=== PATIENT | female | born 1945 | race Caucasian/White ===

== ENCOUNTER → 2018-06-12 | Outpatient (CLI) | payer MEDICARE, OTHER ==
[~2018-06-12] MED LIST: ALBU18HF2 INH; ASPI-983 PO; FLUT1BLS3 INH; FURO20TA4 PO; LISI10TA2 PO; LORA-405 SL; METO50TA15 PO; ONDA4TAB10 PO; OXYC1TAB12 PO; OXYC20OR15 PO; OXYC30TA77 PO; POTA10TA10 PO; PRD20T PO; RANI150T11 PO
== END ==
LOC: RAD FS 12:03
PROVIDERS: ATTEND Family Medicine
DX: Z53.9 Procedure and treatment not carried out, unspecified reason (principal)

== ENCOUNTER 2018-06-16 03:33 | Inpatient (IN) | payer MEDICARE, OTHER ==
[2018-06-16] VITALS (17 sets, daily range): BP systolic 112–138; BP diastolic 11–111
[~2018-06-16] VITALS: Ht 160 cm; Wt 60.3 kg
[2018-06-16] MEDS ORDERED: DEXAMETHASONE 4 MG/ML SDV (DECADRON) ONE (03:37)
[2018-06-16] MEDS ORDERED: RT-ALBUTEROL/IPRATROPIUM 3 ML (DUONEB) VIAL ONE (03:37)
[2018-06-16] MEDS ORDERED: methylPREDNISolone 125 MG (Solu-MEDROL) VIAL IV STA (03:41)
[2018-06-16] MEDS ORDERED: methylPREDNISolone 125 MG (Solu-MEDROL) VIAL ONE (03:41)
[2018-06-16] MEDS ORDERED: RT-ALBUTEROL/IPRATROPIUM 3 ML (DUONEB) VIAL INH ONE (03:45)
[2018-06-16] MEDS ORDERED: DEXAMETHASONE 4 MG/ML SDV (DECADRON) IH ONE (03:45)
[2018-06-16 03:49] LABS: BASOPHILS # (AUTO) 0.1 10^3/uL (0.0-0.1); BASOPHILS % (AUTO) 1 % (0-10); EOSINOPHILS # (AUTO) 3.5 10^3/uL (0.0-0.3); EOSINOPHILS % (AUTO) 35 % (0-10); HEMATOCRIT 41 % (35-52); HEMOGLOBIN 13.8 G/DL (11.5-16.0); LYMPHOCYTES # (AUTO) 2.4 X 10^3 (1.0-4.0); LYMPHOCYTES % (AUTO) 23 % (12-44); MEAN CORPUSCULAR HEMOGLOBIN 31 PG (25-34); MEAN CORPUSCULAR HGB CONC 33 G/DL (32-36); MEAN CORPUSCULAR VOLUME 92 FL (80-99); MEAN PLATELET VOLUME 9.1 FL (7.4-10.4); MONOCYTES # (AUTO) 0.9 X 10^3 (0.0-1.0); MONOCYTES % (AUTO) 9 % (0-12); NEUTROPHILS # (AUTO) 3.3 X 10^3 (1.8-7.8); NEUTROPHILS % (AUTO) 32 % (42-75); PLATELET COUNT 340 10^3/uL (130-400); RED CELL DISTRIBUTION WIDTH 13.3 % (10.0-14.5); WHITE BLOOD COUNT 10.1 10^3/uL (4.3-11.0)
--- NOTE | 2018-06-16 03:51 | ED Respiratory ---
General Stated Complaint: SOB Source: patient (VERY LIMITED AND DIFFICULT HISTORIANB), family (DAUGHTER IS FAIR HISTORIAN) Exam Limitations: other (BOTH PT AND DAUGHTER NEED FREQUENT RE-DIRECTING TO EMERGENT PROBLEM OF PT'S BREATHING. THEY BOTH ARE FIXATED ON ALL OF PT'S ONGOING CHRONIC PROBLEMS OF BACK AND NECK PAIN AND GI ISSUES) History of Present Illness Date Seen by Provider: Jun 16, 2018 Time Seen by Provider: 03:35 Initial Comments PT ARRIVES VIA POV FROM HOME IN [place] PT WITH HISTORY OF COPD, O2 DEPENDENT AT 2L/NC C/O INCREASED SHORTNESS OF BREATH TONIGHT--IN LAST 24 HOURS LAST USED ALBUTEROL INHALER JUST PRIOR TO LEAVING HOME NO FEVER, BUT HAS HAD SWEATS PT HAS ONGOING SWELLING IN LEGS. AND WAS HAVING SOME WEIGHT GAIN OVER THE LAST SEVERAL MONTHS, BUT THEN HAS BEEN LOSING WEIGHT OVER THE LAST FEW MONTHS OR MORE DUE TO ONGOING ISSUES WITH NAUSEA/VOMITING AND ABDOMINAL PAIN AND "CAN'T EAT" INCREASE IN CHRONIC COUGH--PRODUCTIVE OF COLORED SPUTUM NO CHEST PAIN HAS HISTORY OF PNEUMONIA AND WAS TREATED WITH ORAL ANTIBIOTICS A COUPLE OF MONTHS AGO FOR PNEUMONIA. PT SAW DR. GARCIA ON Tuesday06/14/18 FOR ROUTINE EXAM FOR CHRONIC ISSUES PT TAKES PERCOCET FOR CHRONIC BACK, NECK AND KNEE PAIN --WAS TAKING AT LEAST 5 A DAY, SO SWITCHED HER TO OXYCONTIN--HAS ONLY TAKEN 2 PILLS TOTAL PCP: FT. LIBIA CURTIS. Allergies and Home Medications Allergies Coded Allergies: morphine (Verified Allergy, Unknown, 06/16/18) Patient Home Medication List Home Medication List Reviewed: Yes Review of Systems Review of Systems Constitutional: see HPI, diaphoresis; No fever; weight gain, weight loss EENTM: no symptoms reported Respiratory: see HPI, cough, dyspnea on exertion, phlegm, short of breath, wheezing Cardiovascular: No chest pain; edema; No palpitations, No syncope Gastrointestinal: see HPI, abdominal pain (CHRONIC), loss of appetite (CHRONIC) , nausea (CHRONIC ), vomiting (CHRONIC), other (ALL OF THE ABOVE GI SYMPTOMS HAVE BEEN ONGOING FOR A FEW MONTHS) Genitourinary: no symptoms reported Musculoskeletal: see HPI (ALL CHRONIC PAIN COMPLAINTS) Skin: no symptoms reported Psychiatric/Neurological: Headache; Denies Numbness, Denies Paresthesia Hematologic/Lymphatic: No Symptoms Reported Immunological/Allergic: no symptoms reported Past Gcwcjhv-Hrxefj-Crczao Hx Patient Social History Alcohol Use: Denies Use Recreational Drug Use: No Smoking Status: Current Everyday Smoker (1 04/26 PPD) Recent Foreign Travel: No Contact w/Someone Who Travel: No Past Medical History Surgeries: Yes (HYST/BSO; BACK SURGERY; NECK SURGERY; LEFT KNEE SCOPE; CATARACTS) Eye Surgery, Hysterectomy, Oophorectomy, Orthopedic Respiratory: Yes Pneumonia, Chronic Bronchitis, COPD Cardiac: Yes Hypertension 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 oz. kg; BMI Method: General Appearance: thin, other (VERY ANXIOUS, MODERATELY DYSPNEIC --TALKS IN 2 -3 ) HEENT: PERRL/EOMI Neck: non-tender, full range of motion, supple, normal inspection Respiratory: other (MINIMAL AREATION IN ALL LUNG [place], OCCASIONAL PRODUCTIVE COUGH) Cardiovascular: regular rate, rhythm, no murmur Gastrointestinal: soft, tenderness (EPIGASTRIC) Extremities: normal range of motion, non-tender, no calf tenderness, normal capillary refill, pedal edema (1+ BILATERALLY) Neurologic/Psychiatric: no motor/sensory deficits, alert, oriented x 3, other ( ANXIOUS) Skin: normal color, warm/dry Focused Exam Lactate Level 06/16/18 03:47: Lactic Acid Level 1.28 Lactic Acid Level Laboratory Tests Test 06/16/18 03:47 Lactic Acid Level 1.28 MMOL/L (0.50-2.00) Progress/Results/Core Measures Suspected Sepsis SIRS Temperature: Pulse: Respiratory Rate: Laboratory Tests 06/16/18 03:40: White Blood Count 10.1 Blood Pressure / Mean: 06/16/18 03:47: Lactic Acid Level 1.28 Laboratory Tests 06/16/18 03:40: Creatinine 1.01, INR Comment 1.0, Platelet Count 340, Total Bilirubin 0.5 Results/Orders Lab Results Laboratory Tests Test 06/16/18 03:40 06/16/18 03:47 06/16/18 03:55 Range/Units White Blood Count 10.1 4.3-11.0 10^3/uL Red Blood Count 4.47 4.35-5.85 10^6/uL Hemoglobin 13.8 11.5-16.0 G/DL Hematocrit 41 35-52 % Mean Corpuscular Volume 92 80-99 FL Mean Corpuscular Hemoglobin 31 25-34 PG Mean Corpuscular Hemoglobin Concent 33 32-36 G/DL Red Cell Distribution Width 13.3 10.0-14.5 % Platelet Count 340 130-400 10^3/uL Mean Platelet Volume 9.1 7.4-10.4 FL Neutrophils (%) (Auto) 32 L 42-75 % Lymphocytes (%) (Auto) 23 12-44 % Monocytes (%) (Auto) 9 0-12 % Eosinophils (%) (Auto) 35 H 0-10 % Basophils (%) (Auto) 1 0-10 % Neutrophils # (Auto) 3.3 1.8-7.8 X 10^3 Lymphocytes # (Auto) 2.4 1.0-4.0 X 10^3 Monocytes # (Auto) 0.9 0.0-1.0 X 10^3 Eosinophils # (Auto) 3.5 H 0.0-0.3 10^3/uL Basophils # (Auto) 0.1 0.0-0.1 10^3/uL Neutrophils % (Manual) 38 % Lymphocytes % (Manual) 23 % Monocytes % (Manual) 9 % Eosinophils % (Manual) 30 % Prothrombin Time 13.0 12.2-14.7 SEC INR Comment 1.0 0.8-1.4 Activated Partial Thromboplast Time 43 H 24-35 SEC Sodium Level 141 135-145 MMOL/L Potassium Level 4.2 3.6-5.0 MMOL/L Chloride Level 104 98-107 MMOL/L Carbon Dioxide Level 24 21-32 MMOL/L Anion Gap 13 5-14 MMOL/L Blood Urea Nitrogen 10 7-18 MG/DL Creatinine 1.01 0.60-1.30 MG/DL Estimat Glomerular Filtration Rate 54 BUN/Creatinine Ratio 10 Glucose Level 107 H 70-105 MG/DL Calcium Level 10.1 8.5-10.1 MG/DL Corrected Calcium 10.1 8.5-10.1 MG/DL Magnesium Level 2.1 1.8-2.4 MG/DL Total Bilirubin 0.5 0.1-1.0 MG/DL Aspartate Amino Transf (AST/SGOT) 31 5-34 U/L Alanine Aminotransferase (ALT/SGPT) 26 0-55 U/L Alkaline Phosphatase 84 40-136 U/L Total Creatine Kinase 103 29-168 U/L Creatine Kinase MB 2.0 <6.6 NG/ML Troponin I 1.438 *H <0.028 NG/ML B-Type Natriuretic Peptide 71.9 <100.0 PG/ML Total Protein 6.8 6.4-8.2 GM/DL Albumin 4.0 3.2-4.5 GM/DL Lactic Acid Level 1.28 0.50-2.00 MMOL/L Blood Gas Puncture Site RIGHT RADIAL Blood Gas Patient Temperature 96.6 Arterial Blood pH 7.44 H 7.37-7.43 Arterial Blood Partial Pressure CO2 37 35-45 MMHG Arterial Blood Partial Pressure O2 146 H 79-93 MMHG Arterial Blood HCO3 25 23-27 MMOL/L Arterial Blood Total CO2 26.6 21.0-31.0 MMOL/L Arterial Blood Oxygen Saturation 100 94-100 % Arterial Blood Base Excess 1.4 -2.5-2.5 MMOL/L Frank Test POSITIVE Blood Gas Ventilator Setting NO Blood Gas Inspired Oxygen 10 Micro Results Microbiology 06/16/18 Influenza Types A,B Antigen (BRANDEE) - Final, Complete My Orders Orders - SEGUN MASON DO Dexamethasone Injection (Decadron Inject (06/16/18 03:37) Albuterol/Ipra Inhalation Soln (Duoneb I (06/16/18 03:37) Saline Lock/Iv-Start (06/16/18 03:41) Ekg Tracing (06/16/18 03:41) O2 (06/16/18 03:41) Monitor-Rhythm Ecg Trace Only (06/16/18 03:41) BNP (06/16/18 03:41) Cbc With Automated Diff (06/16/18 03:41) Comprehensive Metabolic Panel (06/16/18 03:41) Creatine Kinase (06/16/18 03:41) Creatine Kinase Mb (06/16/18 03:41) Lactic Acid Analyzer (06/16/18 03:41) Magnesium (06/16/18 03:41) Protime With Inr (06/16/18 03:41) Partial Thromboplastin Time (06/16/18 03:41) Troponin I (06/16/18 03:41) Blood Culture (06/16/18 03:41) Influenza A And B Antigens (06/16/18 03:41) Chest 1 View, Ap/Pa Only (06/16/18 03:41) Methylprednisolone Sod Succ (Solu-Medrol (06/16/18 03:41) Albuterol/Ipra Inhalation Soln (Duoneb I (06/16/18 03:45) Dexamethasone Injection (Decadron Inject (06/16/18 03:45) Rt Request For Service (06/16/18 03:41) Svn Small Volume Nebulizer (06/16/18 03:41) Methylprednisolone Sod Succ (Solu-Medrol (06/16/18 03:41) Arterial Blood Gas (06/16/18 03:48) Manual Differential (06/16/18 03:40) Arterial Blood Draw (06/16/18 ) Albuterol Pre-Mix Nebs (Rt) (Proventil (06/16/18 04:08) Svn Small Volume Nebulizer (06/16/18 04:08) Aspirin Chewable Tablet (Baby Aspirin Ch (06/16/18 04:30) Acetaminophen Tablet (Tylenol Tablet) (06/16/18 04:30) Hydralazine Injection (Apresoline Inject (06/16/18 04:45) Ct Head Wo (06/16/18 04:40) Ct Angio Chst/Abd/Pelv W (06/16/18 04:40) Fentanyl Injection (Sublimaze Injection (06/16/18 04:59) Fentanyl Injection (Sublimaze Injection (06/16/18 04:56) Iohexol Injection (Omnipaque 350 Mg/Ml 1 (06/16/18 06:00) Ns (Ivpb) (Sodium Chloride 0.9% Ivpb Bag (06/16/18 06:00) Ticagrelor Tablet (Brilinta Tablet) (06/16/18 06:30) Heparin Drip 14988 Unit/500ml (Heparin (06/16/18 06:23) Heparin (Bolus Per Protocol) (Heparin (B (06/16/18 06:23) Medications Given in ED Current Medications Medications Dose Ordered Sig/Shawna Route Start Time Stop Time Status Last Admin Dose Admin Acetaminophen 1,000 mg ONCE ONCE PO 06/16/18 04:30 06/16/18 04:31 DC 06/16/18 04:36 1,000 MG Albuterol/ Ipratropium 3 ml ONCE ONCE INH 06/16/18 03:45 06/16/18 03:46 DC 06/16/18 03:45 3 ML Aspirin 324 mg ONCE ONCE PO 06/16/18 04:30 06/16/18 04:31 DC 06/16/18 04:36 324 MG Dexamethasone Sodium Phosphate 20 mg ONCE ONCE IH 06/16/18 03:45 06/16/18 03:46 DC 06/16/18 03:45 20 MG Fentanyl Citrate 100 mcg STK-MED ONCE .ROUTE 06/16/18 04:56 06/16/18 05:01 DC 06/16/18 05:07 25 MCG Heparin Sodium (Porcine) HEPARIN BOLUS ACS PROTOC... 0623 ONCE IV 06/16/18 06:23 06/16/18 06:27 DC 06/16/18 06:52 5,000 UNIT Heparin Sodium/ Dextrose 500 ml @ 0 mls/hr Q0M ONCE IV 06/16/18 06:23 06/16/18 06:27 DC 06/16/18 06:54 16 MLS/HR Hydralazine HCl 10 mg ONCE ONCE IV 06/16/18 04:45 06/16/18 06:22 DC 06/16/18 04:45 10 MG Iohexol 150 ml ONCE ONCE IV 06/16/18 06:00 06/16/18 06:23 DC 06/16/18 05:52 150 ML Sodium Chloride 80 ml ONCE ONCE IV 06/16/18 06:00 06/16/18 06:23 DC 06/16/18 05:52 80 ML Ticagrelor 180 mg ONCE ONCE PO 06/16/18 06:30 06/16/18 06:31 DC 06/16/18 06:51 180 MG Vital Signs/I&O 06/16/18 06/16/18 06/16/18 06/16/18 03:35 03:35 03:45 05:34 Temp 96.6 Pulse 113 Resp 26 B/P (MAP) 154/115 (128) Pulse Ox 96 96 99 98 O2 Delivery Nasal Cannula Nasal Cannula Nasal Cannula Nasal Cannula O2 Flow Rate 2.00 2.00 3.00 3.00 Capillary Refill : Progress Note : Progress Note GIVEN HOUR LONG NEB TREATMENT, AND SOLU-MEDROL--INCREASED AERATION, RESPIRATIONS MUCH LESS LABORED, PT APPEARS CALMER WITH VARYING DEGREES OF ANXIETY THROUGHOUT ER STAY PT CONTINUES TO C/O HEADACHE--BP IS ELEVATED--HYDRALAZINE GIVEN, TYLENOL GIVEN-- BP DOWN, HEADACHE IMPROVING PT CONTINUED TO C/O CHRONIC BACK PAIN--FENTANYL GIVEN--BACK PAIN EASED PT BEGAN TO SHOW SOME SIGNS OF RESPIRATORY FATIGUE, AND CPAP ORDERED, BUT THEN PT ADAMANTLY REFUSED TO WEAR IT WHEN RT TRIED TO PLACE THE MASK ON HER, AND PT HAD INCREASING ANXIETY AGAIN O2 SATS REMAINED 100% ON 2L/NC THROUGHOUT PT EVENTUALLY WAS ABLE TO REST FOR REMAINDER OF ER STAY PT GIVEN ASPIRIN 324 MG, BRILINTA, AND HEPARIN PER DR. FATIMA'S ADVICE. ECG Initial ECG Impression Date: Jun 16, 2018 Initial ECG Impression Time: 03:39 Initial ECG Rate: 101 Initial ECG Rhythm: S.Tach Initial ECG Comparisson: No Previous ECG Available Diagnostic Imaging Comments CXR--MILD VASCULAR CONGESTION, PENDING RADIOLOGIST REVIEW CT HEAD--NO ACUTE PROCESS, PER [facility] VIA FAX @ 0600 CT CHEST/ABDOMEN/PELVIS ANGIOGRAM--NO P.E. EMPHYSEMATOUS CHANGES OF LUNGS, DISTAL THORACIC AORTIC ANEURYSM 4.3. 4.1 WITH INTRALUMINAL THROMBUS. NO DISSECTION. 2.5 X 2.5 X 2 CM FOCAL ANEURYSMAL OUTPOUCHING OF INFRARENAL ABDOMINAL AORTA, WITH MINIMAL THROMBUS IN THE LUMEN, NO DISSECTION. CHRONIC LEFT UPJ RENAL OBSTRUCTION PER [facility] VIA FAX @ 0617 Reviewed: Reviewed by Mo Departure Communication (Admissions) 5789--SPOKE WITH DR. FATIMA, ADVISES BRILINTA, HEPARIN BOLUS 5000 UNITS, WITH DRIP AT 800 MG, ECHOCARDIOGRAM IN AM. ADVISES ADMIT TO HOSPITALIST. 7309--SPOKE WITH DR. YUSUF, HOSPITALIST, ACCEPTS PT FOR ADMIT WILL OBTAIN CT STUDIES PRIOR TO INITIATING HEPARIN AND BRILINTA 0617--REVIEWED CT RESULTS WITH DR. FATIMA, AND HE ADVISES TO GIVE BRILINTA AND HEPARIN ADVISED NO BEDS AVAILABLE UPSTAIRS UNTIL AFTER 0700, SO WILL HOLD IN ER UNTIL BED IS AVAILABLE. Impression Primary Impression: NSTEMI (non-ST elevated myocardial infarction) Additional Impressions: COPD exacerbation HTN (hypertension) Chronic back pain Anxiety Heavy tobacco smoker Disposition: ADMITTED INPATIENT Condition: Improved Admissions Decision to Admit Reason: Admit from ER (General) Decision to Admit/Date: Jun 16, 2018 Time/Decision to Admit Time: 04:40 Departure-Patient Inst. Referrals: ALVA GARCIA MD (PCP) Primary Care Physician ADRIAN WALKER APRN (Family) Primary Care Physician SEGUN MASON DO Jun 16, 2018 03:51
[2018-06-16 04:05] LABS: ABG BASE EXCESS 1.4 MMOL/L (-2.5-2.5); ABG OXYGEN SATURATION 100 % (94-100); ABG PCO2 37 MMHG (35-45); ABG PH 7.44 (7.37-7.43); ABG PO2 146 MMHG (79-93); ABG TCO2 26.6 MMOL/L (21.0-31.0)
[2018-06-16 04:06] LABS: ALLENS TEST POSITIVE
[2018-06-16 04:07] LABS: INSPIRED O2 10; PATIENT TEMP 96.6; VENTILATOR NO
[2018-06-16] MEDS ORDERED: RT-ALBUTEROL SULF 2.5 MG/3 ML PRE-MIX VIAL INH STA (04:08)
[2018-06-16 04:13] LABS: BILIRUBIN,TOTAL 0.5 MG/DL (0.1-1.0); CALCIUM 10.1 MG/DL (8.5-10.1); CREATININE SERUM 1.01 MG/DL (0.60-1.30); MAGNESIUM 2.1 MG/DL (1.8-2.4); POTASSIUM 4.2 MMOL/L (3.6-5.0); TOTAL PROTEIN 6.8 GM/DL (6.4-8.2)
[2018-06-16] MEDS ORDERED: ASPIRIN 81 MG CHEW (CHILDREN'S ASA) PO ONE (04:30)
[2018-06-16] MEDS ORDERED: ACETAMINOPHEN 500 MG TAB (TYLENOL) PO ONE (04:30)
[2018-06-16] MEDS ORDERED: hydrALAZINE (APESOLINE) 20 MG/ML VIAL IV ONE (04:45)
[2018-06-16] MEDS ORDERED: fentaNYL INJECTION 100 MCG/2 ML AMP ONE (04:56)
[2018-06-16] MEDS ORDERED: fentaNYL INJECTION 100 MCG/2 ML AMP IVP STA (04:59)
[2018-06-16 05:15] LABS: EOSINOPHILS % (MANUAL) 30 %; LYMPHOCYTES % (MANUAL) 23 %; MONOCYTES % (MANUAL) 9 %; NEUTROPHILS % (MANUAL) 38 %
[2018-06-16] MEDS ORDERED: NS 100 ML (IVPB) BAG IV ONE (06:00)
[2018-06-16] MEDS ORDERED: IOHEXOL 350 MG/ML 150 ML (OMNIPAQUE 350) VIAL IV ONE (06:00)
--- NOTE | 2018-06-16 06:06 | Diagnostic Imaging Report ---
PROCEDURE: CT head without contrast. TECHNIQUE: Multiple contiguous axial images were obtained through the brain without the use of intravenous contrast. INDICATION: Altered mental status The ventricles are normal in size, shape and position. There are no masses or hemorrhages. There are no extra-axial fluid collections. Basilar artery appears more dense than the carotids which can be seen with thrombosis. IMPRESSION: Hyperdense basilar artery could be due to thrombosis. Clinical correlation recommended. Dictated by: Dictated on workstation # [id number]
[2018-06-16] MEDS ORDERED: HEParin DRIP 25000 UNIT/500ML 500 ML IV ONE (06:23)
[2018-06-16] MEDS ORDERED: HEParin 1000 UNIT/ML (10ML VIAL) FOR BOLUS IV ONE (06:23)
[2018-06-16] MEDS ORDERED: TICAGRELOR 90 MG TABLET (BRILINTA) PO ONE (06:30)
--- NOTE | 2018-06-16 06:39 | Diagnostic Imaging Report ---
INDICATION: Shortness of breath Portable chest 4:20 AM Heart size and pulmonary vascularity are normal. Lungs are clear. There are no effusions or pneumothoraces. IMPRESSION: Negative chest Dictated by: Dictated on workstation # [id number]
--- NOTE | 2018-06-16 07:38 | NUR ---
PINA ZIMMER admitted to room CU8-1, with an admitting diagnosis of NSTEMI, HTN, COPD EXAC, on 06/16/18 from ER via ST[facility], accompanied by STAFF.PINA ZIMMER introduced to surroundings, call light, bed controls, phone, TV, temperature control, lights, meal times, smoking policy, visitor policy, side rail policy, bathrooms and showers. Patient Rights given to patient in the handbook. PINA ZIMMER verbalizes understanding that [facility] is not responsible for the loss or damage to any personal effects or valuables that are kept in the patients posession during their hospitalization. The following Patient Care Plans were discussed with the PT: Discharge Planning, PAIN,FLUID VOLUME DEFICIT, and ANXIETY. PINA ZIMMER verbalizes understanding of Interdisciplinary Patient Education. Patient and family were informed about the Rapid Response Team and its purpose.
--- NOTE | 2018-06-16 07:44 | Diagnostic Imaging Report ---
PROCEDURE: CT angiography of the chest with contrast and CT abdomen and pelvis with contrast. TECHNIQUE: Multiple contiguous axial images were obtained through the chest, abdomen and pelvis after administration of intravenous contrast. Reconstructed MIP CT angiography acquisitions of the aorta were then performed. INDICATION: Chest and abdominal pain There are emphysematous changes in the lungs. There is a calcified granuloma in the superior segment of the left lower lobe. There are no infiltrates, effusions or pneumothoraces. Ascending aorta is mildly dilated measuring 4.4 cm. There is calcific atherosclerosis of the descending thoracic aorta. There is an intramural hematoma in the lateral wall of the descending thoracic aorta at the level of the hiatus and extends over a distance of 4.5 cm. Appears to terminate at the origin of the celiac artery. Celiac and superior mesenteric artery are both widely patent. Renal arteries are both widely patent. The inferior mesenteric artery appears to reconstitute from SMA collaterals. There is no aneurysm present in the abdominal aorta. Liver appears normal. Gallbladder is present. Pancreas is normal. Spleen is not enlarged. Adrenals are normal. Right kidney is normal. There is severe hydronephrosis of the left kidney. Left ureter is not dilated. This is likely due to a chronic UPJ stenosis. Urinary bladder is unremarkable. Uterus is surgically absent. Small bowel is not dilated. Colon is unremarkable. There is no intraperitoneal free air or free fluid. IMPRESSION: Severe emphysematous change in the lungs. There is an intramural hematoma of the aorta at the thoracoabdominal junction extending for a distance of 4.5 cm. The hematoma terminates at the origin of the celiac artery. There is grade 4 hydronephrosis of the left kidney. Dictated by: Dictated on workstation # [id number]
[2018-06-16] MEDS ORDERED: NITROGLYCERIN 0.4 MG SL TABS BTL 25'S SL PRN (08:00)
[2018-06-16] MEDS ORDERED: CATHETER FLUSH 10 ML SYR IV PRN (08:00)
[2018-06-16] MEDS: HEParin DRIP 25000 UNIT/500ML 500 ML IV SCH (08:25)
[2018-06-16] MEDS: ASPIRIN E.C. 81 MG (ECOTRIN) TAB PO SCH (08:30)
[2018-06-16] MEDS: LORazepam INJ 2 MG/ML (ATIVAN) VIAL IV PRN ×3 (08:30→16:39)
[2018-06-16] MEDS ORDERED: LISI10TA2 PO (08:51)
[2018-06-16] MEDS ORDERED: PRD20T PO (08:51)
[2018-06-16] MEDS ORDERED: ALBU18HF2 INH (08:51)
[2018-06-16] MEDS ORDERED: RANI150T11 PO (08:51)
[2018-06-16] MEDS ORDERED: POTA10TA10 PO (08:51)
[2018-06-16] MEDS ORDERED: ONDA4TAB10 PO (08:51)
[2018-06-16] MEDS ORDERED: OXYC30TA77 PO (08:51)
[2018-06-16] MEDS ORDERED: FURO20TA4 PO (08:51)
[2018-06-16] MEDS ORDERED: FLUT1BLS3 INH (08:51)
[2018-06-16] MEDS ORDERED: METO50TA15 PO ×2 (08:51→08:55)
[2018-06-16] MEDS ORDERED: ASPI-983 PO (08:51)
--- NOTE | 2018-06-16 08:57 | Consultation-Cardiology ---
HPI-Cardiology Cardiology Consultation: Date of Consultation 06/16/18 Date of Admission Attending Physician Rakel Monroy DO Admitting Physician Monty Jaimes MD Consulting Physician Brian ROBERTSON MD HPI: Time Seen by a Provider: 09:00 Chief Complaint: Shortness of breath This is a 73-year-old lady with history of oxygen dependent COPD, active smoking. Presents with increased shortness of breath since last night. She also has worsening chronic cough. She denies any significant chest pain. She is also been complaining of poor appetite and abdominal discomfort. Review of Systems-Cardiology Review of Systems Constitutional: As described under HPI; No As described under HPI, No no symptoms reported, No chills, No fever, No lightheadedness Eyes: No As described under HPI, No no symptoms reported, No blindness, No blurred vision, No contact lenses, No drainage, No decreased acuity, No foreign body sensation, No pain, No vision change Ears/Nose/Throat: No As described under HPI, No no symptoms reported, No chronic hearing loss, No ear discharge, No ear pain, No nasal drainage, No ulcerations Respiratory: No no symptoms reported; As described under HPI; No As described under HPI, No cough, No orthopnea; shortness of breath; No SOB with excertion Cardiovascular: No no symptoms reported; As described under HPI; No As described under HPI, No chest pain, No edema, No irregular heart rate, No lightheadedness, No palpitations Gastrointestinal: No no symptoms reported, No As described under HPI, No abdomen distended; abdominal pain; No blood streaked bowels, No constipation, No diarrhea, No nausea, No vomiting; nausea/vomiting/diarrhea; No stool coloration changes Genitourinary: No As described under HPI, No burning, No dysuria, No discharge , No frequency, No flank pain, No hematuria, No urgency : Yes : No Musculoskeletal: No no symptoms reported, No As describe under HPI, No back pain, No gout, No joint pain, No joint swelling, No muscle pain, No muscle stiffness, No neck pain, No other Skin: No no symptoms reported, No As described under HPI, No change in color, No change in hair/nails, No dryness, No lesions, No lumps, No rash, No other, No skin related problems, No ulcerations, No rash on exposed areas, No ulcerations on exposed areas Psychiatric/Neurological: No anxiety, No depression, No seizure, No focal weakness, No syncope Hematologic: No bleeding abnormalities PDG-Ehuzib-Tposih Hx Patient Social History Alcohol Use: Denies Use Recreational Drug Use: No Smoking Status: Current Everyday Smoker (1 1/2 PPD) Type Used: Cigarettes 2nd Hand Smoke Exposure: Yes Recent Foreign Travel: No Recent Infectious Disease Expo: No Hospitalization with Isolation: Denies Past Medical History PMH As described under Assessment. Allergies and Home Medications Allergies Coded Allergies: morphine (Verified Allergy, Unknown, 06/16/18) Home Medications Albuterol Sulfate 18 Gm Hfa.aer.ad, 2 PUFF INH Q4H PRN for SHORTNESS OF BREATH, (Reported) Aspirin 81 Mg Tablet.dr, 81 MG PO DAILY PRN for PAIN-MILD, (Reported) Lorazepam 1 Mg Tablet, 1 MG SL Q2H PRN for ANXIETY Prescribed by: AMANDA VAZQUEZ on 06/17/18 1145 Metoprolol Tartrate 50 Mg Tablet, 75 MG PO DAILY, (Reported) TAKES 1 & 1/2 (50MG) TABLET Metoprolol Tartrate 50 Mg Tablet, 25 MG PO HS PRN for HIGH BLOOD PRESSURE, ( Reported) TAKES 1/2 (50MG) TABLET Ondansetron HCl 4 Mg Tablet, 4 MG PO TID PRN for NAUSEA/VOMITING-1ST LINE, ( Reported) Oxycodone HCl 30 Mg Tab.er.12h, 30 MG PO BID, (Reported) Oxycodone HCl 20 Mg/1 Ml Oral.conc, 10 MG PO Q15M PRN for PAIN-MILD TO MODERATE Prescribed by: AMANDA VAZQUEZ on 06/17/18 1145 Oxycodone HCl/Acetaminophen 1 Each Tablet, 1 TAB PO Q8H PRN for PAIN-MODERATE Prescribed by: AMANDA VAZQUEZ on 06/17/18 1145 Patient Home Medication List Home Medication List Reviewed: Yes Physical Exam-Cardiology Physical Exam Vital Signs/I&O 06/17/18 06/17/18 06/17/18 06/17/18 06:36 07:00 07:02 07:55 Temp 98.4 Pulse 122 120 Resp 31 B/P (MAP) 112/71 (85) Pulse Ox 96 94 O2 Delivery Nasal Cannula Nasal Cannula O2 Flow Rate 3.00 3.00 206/17/18 06/17/18 06/17/18 08:02 08:14 09:00 10:00 Pulse 118 101 100 Resp 22 16 14 B/P (MAP) 111/73 (86) 116/97 (103) 128/90 (103) Pulse Ox 95 98 98 O2 Delivery Nasal Cannula Nasal Cannula Nasal Cannula Nasal Cannula O2 Flow Rate 3.00 3.00 3.00 3.00 06/17/18 06/17/18 06/17/18 06/17/18 11:00 11:21 11:26 12:00 Temp 99.0 Pulse 92 98 Resp 19 19 B/P (MAP) 135/86 (102) 129/87 (101) Pulse Ox 98 95 O2 Delivery Nasal Cannula Nasal Cannula Nasal Cannula O2 Flow Rate 3.00 3.00 3.00 06/17/18 06/17/18 06/17/18 12:59 13:00 14:20 Pulse 105 107 Resp 38 B/P (MAP) 112/85 (94) Pulse Ox 97 O2 Delivery Nasal Cannula O2 Flow Rate 3.00 06/17/18 00:00 Intake Total 352 ml Output Total 450 ml Balance -98 ml Capillary Refill : Less Than 3 Seconds Constitutional: appears stated age; No apparent distress; well-developed, well- nourished HEENT: PERRL; No discharge; hearing is well preserved, oral hygience is good; No ulceration, No xanthelasmas are seen Neck: No carotid bruit; carotid pulses are 2 + bilaterally Respiratory: chest is bilaterally symmetric, lungs clear to auscultation, other (coarse breathing) Cardiovascular: regular rate-rhythm; No irregularly irregular, No extra beats, No parasternal heave is noted, No JVD, No edema, No bradycardia, No tachycardia , No point of maximal impulse, No cardiac thrills are palpable; S1 and S2; No gallop/S3, No gallop/S4, No diastolic murmur, No systolic murmur, No friction rub, No click, No other Gastrointestinal: No tender, No soft, No round, No distended, No pulsatile mass , No organomegaly, No guarding, No rebound, No tenderness, No hernia, No mass, No audible bowel sounds, No abnormal bowel sounds, No abdominal bruits, No spleenomegaly, No other Rectal: deferred Extremities: No normal range of motion, No non-tender, No normal inspection, No pedal edema, No calf tenderness, No normal capillary refill, No pelvis stable , No calf tenderness, No inflammation, No pedal edema, No slow capillary refill , No swelling, No other, No abrasion, No clubbing, No cyanosis, No ecchymosis, No laceration, No no lower extremity edema bilateral, No significant edema, No tenderness, No wound Neurologic/Psychiatric: alert, oriented x 3, power is 5/5 both on sides Skin: No rash, No ulcerations Data Review Labs Laboratory Tests 06/17/18 03:06: White Blood Count 11.4H, Red Blood Count 3.69L, Hemoglobin 11.6, Hematocrit 34L , Mean Corpuscular Volume 93, Mean Corpuscular Hemoglobin 31, Mean Corpuscular Hemoglobin Concent 34, Red Cell Distribution Width 13.6, Platelet Count 324, Mean Platelet Volume 9.2, Neutrophils (%) (Auto) 68, Lymphocytes (%) (Auto) 18, Monocytes (%) (Auto) 13H, Eosinophils (%) (Auto) 2, Basophils (%) (Auto) 0, Neutrophils # (Auto) 7.7, Lymphocytes # (Auto) 2.0, Monocytes # (Auto) 1.4H, Eosinophils # (Auto) 0.2, Basophils # (Auto) 0.0, Sodium Level 137, Potassium Level 4.1, Chloride Level 103, Carbon Dioxide Level 25, Anion Gap 9, Blood Urea Nitrogen 19H, Creatinine 0.86, Estimat Glomerular Filtration Rate > 60, BUN/ Creatinine Ratio 22, Glucose Level 103, Calcium Level 9.4, Corrected Calcium 9.8 , Total Bilirubin 0.4, Aspartate Amino Transf (AST/SGOT) 27, Alanine Aminotransferase (ALT/SGPT) 21, Alkaline Phosphatase 66, Total Protein 5.9L, Albumin 3.5, Triglycerides Level 108, Cholesterol Level 193, LDL Cholesterol Direct 123, VLDL Cholesterol 22, HDL Cholesterol 55 Microbiology 06/16/18 Blood Culture - Preliminary, Resulted No growth 06/16/18 MRSA Screen - Final, Complete MRSA not isolated ECG Impression ECG Initial ECG Rhythm: Normal Sinus A/P-Cardiology Assessment/Admission Diagnosis Non-STEMI, Abdominal intramural aortic hematoma, Severe COPD exacerbation, Poor appetite and abdominal discomfort. Plan Non-STEMI: Patient was given aspirin, Brilinta and heparin. I spoke at length about coronary angiography and possible intervention. All risks and complication were explained in detail. However the patient refused. She understands the risk of repeat KS and even . Continue with medical therapy. Recommended echocardiogram. Abdominal aortic intramural hematoma: Vascular surgery consultation. Severe COPD exacerbation: Defer to Dr. Wu and the primary team. Nausea/vomiting, weight loss and poor appetite: CTA abdominal and did not show any significant mesenteric ischemia. Thank you for your consultation. Please call me if you have any questions. Felicitas Robertson MD, FACP, FACC, FSCAI, FHRS, CCDS Interventional Cardiology Cardiac Electrophysiology Vascular Medicine and Endovascular Interventions Biran ROBERTSON MD Jun 16, 2018 08:56
--- NOTE | 2018-06-16 08:57 | NUR ---
WENT OVER THE EXT MED HX WITH THE PATIENTS DAUGHTER. SHE VERIFIED HOW SHE TAKES EACH MEDICATION. SHE STATES HER MOM DOES NOT LIKE TO TAKE MEDS SO MOST OF THEM ARE USES MORE NEEDED. SHE STATES THEY ARE NOT LONGER TAKING THE HCTZ AT ALL, IF SHE NEEDED A WATER PILL THEY TAKE THE LASIX PRN. SHE IS NO LONGER TAKING THE PERCOCET BECAUSE SHE WAS GIVEN THE OXYCONTIN HOWEVER THEY FEEL THE OXYCONTIN MAY BE PARTLY WHY THEY ARE IN THE HOSPITAL. SHE FILLED METOPROLOL 50MG THEN 100MG, THEY STATE HE BLOOD PRESSURE DID GO HIGH AND THEY INCREASED THE DOSE HOWEVER THEY HAVE DECREASED BACK DOWN TO THE 50MG. SHE TAKES 1.5 EVERY MORNING AND DEPENDING ON HER BLOOD PRESSURE MAY TAKE ANOTHER 1/2 TAB AT HS. SHE TAKES ASPIRIN 81MG DAILY PRN OTC FOR PAIN
--- NOTE | 2018-06-16 09:01 | History & Physical-Hospitalist ---
History of Present Illness HPI/Chief Complaint CC: NSTEMI HPI: This is a 73-year-old white female clinic patient of Dr. Jaimes in [place] who presented to the ER with vague complaints but found to have non-ST elevation OK among other things. Cardiology will talked to patient and family about cardiac catheterization but daughter wants to wait one day until she is able to settle in and not be so anxious. It appears that she is been very debilitated since May 22 and has resided in a wheelchair and her daughter lives with her now since that time. She continues to smoke and is maintained on oxygen most of the time. Overall has not had a definitive diagnosis that has caused the severe chronic and severe debility and wheelchair-bound status. Currently patient required a sedative because she was so anxious and currently she is sleeping. Source: patient Exam Limitations: clinical condition Date Seen 06/16/18 Time Seen by a Provider: 09:30 Attending Physician Rakel Monroy Maxwell MD Referring Physician Date of Admission Jun 16, 2018 at 06:37 Home Medications & Allergies Home Medications Reviewed patient Home Medication Reconciliation performed by pharmacy medication reconciliations copier repair technician and/or nursing. Patients Allergies have been reviewed. Allergies Allergies Coded Allergies morphine (Verified Allergy, Unknown, 06/16/18) Past Todifhv-Bbmdgy-Zfnxde Hx Past Med/Social Hx: Reviewed Nursing Past Med/Soc Hx, Reviewed and Corrections made Patient Social History Marrital Status: single Employed/Student: retired Alcohol Use: Denies Use Recreational Drug Use: No Smoking Status: Current Everyday Smoker (1 /2 PPD) Type Used: Cigarettes 2nd Hand Smoke Exposure: Yes Recent Foreign Travel: No Contact w/other who traveled: No Recent Hopitalizations: No Recent Infectious Disease Expo: No Seasonal Allergies Seasonal Allergies: No Past Medical History Surgeries: Eye Surgery, Hysterectomy, Oophorectomy, Orthopedic Currently Using CPAP: No Currently Using BIPAP: No Cardiac: Hypertension Hysterectomy, Menopausal Gastrointestinal: Gastroesophageal Reflux Musculoskeletal: Arthritis, Chronic Back Pain HEENT: Cataract History of Blood Disorders: No Review of Systems Constitutional: see HPI, weakness Psychiatric/Neurological: Pre-Existing Deficit Physical Exam Physical Exam Vital Signs Vital Signs - First Documented 06/16/18 03:35 Temp 96.6 Pulse 113 Resp 26 B/P (MAP) 154/115 (128) Pulse Ox 96 O2 Delivery Nasal Cannula O2 Flow Rate 2.00 Capillary Refill : Less Than 3 Seconds Height, Weight, BMI Height: 5'3.00" Weight: 128lbs. oz. 58.480750lu; BMI Method:Stated General Appearance: No Apparent Distress, WD/WN, Cachetic Respiratory: Chest Non Tender, Lungs Clear, No Accessory Muscle Use, No Respiratory Distress, Decreased Breath Sounds Cardiovascular: Regular Rate, Rhythm, No Edema, No Gallop, No JVD, No Murmur, Normal Peripheral Pulses Neurologic/Psychiatric: Other (asleep) Skin: Normal Color, Warm/Dry Results Results/Procedures Labs Laboratory Tests 06/16/18 03:40 Patient resulted labs reviewed. Assessment/Plan Admission Diagnosis Assessment: NSTEMI Severe debility requiring wheelchair bound status without definitive diagnosis per daughter Smoker Oxygen dependent COPD Plan: Cardiac catheterization if patient and family agree Maintain oxygen Nebulizer treatments Admission Status: Inpatient Order (span 2 midnights) Reason for Inpatient Admission: NSTEMI Diagnosis/Problems Diagnosis/Problems (1) NSTEMI (non-ST elevated myocardial infarction) Status: Acute (2) Heavy tobacco smoker Status: Chronic (3) HTN (hypertension) Status: Chronic Qualifiers: Hypertension type: essential hypertension Qualified Codes: I10 - Essential (primary) hypertension (4) Anxiety Status: Chronic RAKEL MONROY DO Jun 16, 2018 09:01
[2018-06-16 09:15] LABS: BILIRUBIN,URINE NEGATIVE (NEGATIVE); CLARITY,URINE SLIGHTLY CLOUDY; COLOR,URINE YELLOW; GLUCOSE, URINE (UA) NEGATIVE (NEGATIVE); KETONES,URINE 2+ (NEGATIVE); LEUKOCYTE ESTERASE ,URINE 2+ (NEGATIVE); NITRITE,URINE NEGATIVE (NEGATIVE); PH,URINE 7 (5-9); PROTEIN,URINE 1+ (NEGATIVE); UROBILINOGEN,URINE NORMAL (NORMAL)
[2018-06-16 09:28] LABS: BACTERIA,URINE NEGATIVE /HPF; RBC,URINE 0-2 /HPF
[2018-06-16] MEDS ORDERED: RT-ALBUTEROL SULF 2.5 MG/3 ML PRE-MIX VIAL INH SCH (10:00)
[2018-06-16 10:20] LABS: MYOGLOBIN SERUM 124.8 NG/ML (10.0-92.0)
[2018-06-16] MEDS: fentaNYL INJECTION 100 MCG/2 ML AMP IV PRN ×3 (10:20→18:49)
[2018-06-16] MEDS ORDERED: FLU QUADRIvalent (5+ YOA) 2018-2019 (AFLURIA) 0.5 ML IM ONE (10:45)
[2018-06-16] MEDS: RT-ALBUTEROL/IPRATROPIUM 3 ML (DUONEB) VIAL INH SCH ×2 (14:43→19:16)
--- NOTE | 2018-06-16 15:50 | NUR ---
Pastoral care visit, provided spiritual care and support.
[2018-06-16] MEDS ORDERED: ACETAMINOPHEN 325 MG TABLET ONE (21:27)
[2018-06-16] MEDS ORDERED: HYDROcodone/APAP 10 MG/325 MG (LORTAB) TAB PO ONE (21:45)
[2018-06-16] MEDS ORDERED: ACETAMINOPHEN 325 MG TABLET PO ONE (21:45)
[2018-06-17] VITALS (14 sets, daily range): BP systolic 111–139; BP diastolic 71–97
[2018-06-17] MEDS: RT-ALBUTEROL/IPRATROPIUM 3 ML (DUONEB) VIAL INH SCH ×4 (00:18→10:23)
[2018-06-17] MEDS: LORazepam INJ 2 MG/ML (ATIVAN) VIAL IV PRN ×2 (00:53→10:00)
[2018-06-17 03:43] LABS: BASOPHILS % (AUTO) 0 % (0-10); EOSINOPHILS # (AUTO) 0.2 10^3/uL (0.0-0.3); EOSINOPHILS % (AUTO) 2 % (0-10); HEMATOCRIT 34 % (35-52); HEMOGLOBIN 11.6 G/DL (11.5-16.0); LYMPHOCYTES % (AUTO) 18 % (12-44); MEAN CORPUSCULAR HEMOGLOBIN 31 PG (25-34); MEAN CORPUSCULAR HGB CONC 34 G/DL (32-36); MEAN CORPUSCULAR VOLUME 93 FL (80-99); MEAN PLATELET VOLUME 9.2 FL (7.4-10.4); MONOCYTES # (AUTO) 1.4 X 10^3 (0.0-1.0); MONOCYTES % (AUTO) 13 % (0-12); NEUTROPHILS # (AUTO) 7.7 X 10^3 (1.8-7.8); NEUTROPHILS % (AUTO) 68 % (42-75); PLATELET COUNT 324 10^3/uL (130-400); RED CELL DISTRIBUTION WIDTH 13.6 % (10.0-14.5); WHITE BLOOD COUNT 11.4 10^3/uL (4.3-11.0)
[2018-06-17 04:03] LABS: ALANINE AMINOTRANSFERASE 21 U/L (0-55); ALBUMIN 3.5 GM/DL (3.2-4.5); ALKALINE PHOSPHATASE 66 U/L (40-136); BILIRUBIN,TOTAL 0.4 MG/DL (0.1-1.0); BUN/CREATININE RATIO 22; CALCIUM 9.4 MG/DL (8.5-10.1); CARBON DIOXIDE 25 MMOL/L (21-32); CHLORIDE 103 MMOL/L (98-107); CHOLESTEROL 193 MG/DL (< 200); CREATININE SERUM 0.86 MG/DL (0.60-1.30); GFR ESTIMATED > 60; GLUCOSE 103 MG/DL (70-105); HDL CHOLESTEROL 55 MG/DL (40-60); POTASSIUM 4.1 MMOL/L (3.6-5.0); SODIUM 137 MMOL/L (135-145); TOTAL PROTEIN 5.9 GM/DL (6.4-8.2); TRIGLYCERIDES 108 MG/DL (<150); VLDL CHOLESTEROL 22 MG/DL (5-40)
--- NOTE | 2018-06-17 05:41 | Pulmonary Consultation ---
History of Present Illness History of Present Illness Date of Consultation 06/17/18 05:36 Time Seen by Provider: 05:36 Date of Admission History of Present Illness Allergies and Home Medications Allergies Coded Allergies: morphine (Verified Allergy, Unknown, 06/16/18) Home Medications Albuterol Sulfate 18 Gm Hfa.aer.ad, 2 PUFF INH Q4H PRN for SHORTNESS OF BREATH, (Reported) Aspirin 81 Mg Tablet.dr, 81 MG PO DAILY PRN for PAIN-MILD, (Reported) Fluticasone/Umeclidin/Vilanter 1 Each Blst.w.dev, 1 PUFF INH DAILY, (Reported) Furosemide 20 Mg Tablet, 20 MG PO DAILY PRN for SWELLING, (Reported) Lisinopril 10 Mg Tablet, 10 MG PO BID PRN for DBP>100, (Reported) Metoprolol Tartrate 50 Mg Tablet, 75 MG PO DAILY, (Reported) TAKES 1 & 1/2 (50MG) TABLET Metoprolol Tartrate 50 Mg Tablet, 25 MG PO HS PRN for HIGH BLOOD PRESSURE, ( Reported) TAKES 1/2 (50MG) TABLET Ondansetron HCl 4 Mg Tablet, 4 MG PO TID PRN for NAUSEA/VOMITING-1ST LINE, ( Reported) Oxycodone HCl 30 Mg Tab.er.12h, 30 MG PO BID, (Reported) Potassium Chloride 10 Meq Tablet.er, 10 MEQ PO DAILY PRN for WHEN TAKING FUROSEMIDE, (Reported) Prednisone 20 Mg Tab, 20 MG PO DAILY PRN for SHORTNESS OF BREATH, (Reported) Ranitidine HCl 150 Mg Tablet, 150 MG PO BID, (Reported) Past Bkaubpp-Fiaoym-Uosboe Hx Past Med/Social Hx: Reviewed Nursing Past Med/Soc Hx, Reviewed and Corrections made Patient Social History Alcohol Use: Denies Use Recreational Drug Use: No Smoking Status: Current Everyday Smoker (04/26 PPD) Type Used: Cigarettes 2nd Hand Smoke Exposure: Yes Recent Foreign Travel: No Contact w/Someone Who Travel: No Recent Infectious Disease Expo: No Recent Hopitalizations: No Immunizations Up To Date Date of Pneumonia Vaccine: Apr 25, 2015 Seasonal Allergies Seasonal Allergies: No Past Medical History Surgeries: Yes (HYST/BSO; BACK SURGERY; NECK SURGERY; LEFT KNEE SCOPE; CATARACTS) Eye Surgery, Hysterectomy, Oophorectomy, Orthopedic Respiratory: Yes Pneumonia, Chronic Bronchitis, COPD Currently Using CPAP: No Currently Using BIPAP: No Cardiac: Yes Hypertension Neurological: No [employer]OM[employer] History: Hysterectomy, Menopausal Genitourinary: No Gastrointestinal: Yes (ONGOING ABDOMINAL PAIN WITH NAUSEA/VOMITING AND NO APPETITE) Gastroesophageal Reflux Musculoskeletal: Yes (CHRONIC BACK, NECK AND KNEE PAIN--S/P BACK, NECK AND LEFT KNEE SURGERY) Arthritis, Chronic Back Pain Endocrine: No HEENT: Yes Cataract Cancer: No Psychosocial: Yes Anxiety Integumentary: Yes Blood Disorders: No Family Medical History Ankylosing spondylitis SON Asthma 19 MOTHER Diabetes mellitus 19 MOTHER FH: scoliosis DAUGHTER Myocardial infarction 19 FATHER Neoplasm 19 MOTHER (THROAT CANCER) Respiratory disorder DAUGHTER Review of Systems Time Seen by Provider: 06:00 Constitutional: Weakness, Malaise; No: Fever, Chills, Sweats, Other Eyes: No: Pain, Vision change, Conjunctivae inflammation, Eyelid inflammation, Other, Redness ENT: Nose congestion, Mouth pain; No: Ear pain, Ear discharge, Nose pain, Nose discharge, Mouth swelling, Throat pain, Throat swelling, Other Respiratory: Cough, Dry, Shortness of breath, SOB with excertion; No: Wheezing , Hemoptysis, Pleuritic Pain, Sputum, Wheezing, Other Cardiovascular: Paroxysmal Noc. Dyspnea; No: Chest Pain, Palpitations, Orthopnea, Edema, Lt Headedness, Other Gastrointestinal: Nausea, Abdominal Pain; No: Vomiting, Diarrhea, Constipation , Melena, Hematochezia, Other Neurological: Weakness, Confusion Sepsis Event Evaluation Height, Weight, BMI Height: 5'3.00" Weight: 134lbs. 3.0oz. 60.405264mw; 23.8 BMI Method:Stated Exam Exam Vital Signs Date Time Temp Pulse Resp B/P (MAP) Pulse Ox O2 Delivery O2 Flow Rate FiO2 06/17/18 05:00 107 20 119/84 (96) 97 Nasal Cannula 3.00 06/17/18 04:00 Nasal Cannula 3.00 06/17/18 04:00 104 18 123/93 (103) 97 Nasal Cannula 3.00 06/17/18 03:16 97 Nasal Cannula 3.00 06/17/18 03:00 105 21 139/93 (108) 97 Nasal Cannula 3.00 06/17/18 02:00 99 18 133/86 (102) 98 Nasal Cannula 3.00 06/17/18 01:00 115 2/23/19 01:00 115 21 117/94 (102) 96 Nasal Cannula 3.00 06/17/18 00:00 98.7 06/17/18 00:00 103 19 134/84 (101) 96 Nasal Cannula 3.00 06/17/18 00:00 Nasal Cannula 3.00 06/16/18 23:00 103 20 126/86 (99) 98 Nasal Cannula 3.00 06/16/18 22:00 108 21 126/84 (98) 96 Nasal Cannula 3.00 06/16/18 21:00 114 21 133/78 (96) 97 Nasal Cannula 3.00 06/16/18 20:00 Nasal Cannula 3.00 06/16/18 20:00 98.7 121 23 123/82 (96) 95 Nasal Cannula 3.00 06/16/18 19:16 99 Nasal Cannula 3.00 06/16/18 19:00 112 06/16/18 19:00 112 21 118/85 (96) 95 Nasal Cannula 3.00 06/16/18 18:06 113 21 115/87 (96) 98 Nasal Cannula 3.00 06/16/18 17:00 112 22 116/81 (93) 96 Nasal Cannula 3.00 06/16/18 16:00 114 21 121/85 (97) 97 Nasal Cannula 3.00 06/16/18 15:11 Nasal Cannula 3.00 06/16/18 15:02 96.9 06/16/18 15:00 123 23 117/78 (91) 96 Nasal Cannula 3.00 06/16/18 14:46 99 Nasal Cannula 3.00 06/16/18 14:00 129 40 124/111 (115) 97 Nasal Cannula 3.00 06/16/18 13:00 118 06/16/18 13:00 121 30 119/87 (98) 97 Nasal Cannula 3.00 06/16/18 12:00 Nasal Cannula 3.00 06/16/18 12:00 110 25 112/76 (88) 96 Nasal Cannula 3.00 06/16/18 11:00 97.4 06/16/18 11:00 123 16 126/94 (105) 96 Nasal Cannula 3.00 06/16/18 10:00 126 30 138/86 (103) 96 Nasal Cannula 3.00 06/16/18 09:38 122 98 06/16/18 09:00 122 25 113/89 (97) 98 Nasal Cannula 3.00 06/16/18 08:18 130 06/16/18 08:00 130 22 117/73 (88) 96 Nasal Cannula 3.00 06/16/18 07:58 Nasal Cannula 3.00 06/16/18 07:45 97.5 129 22 121/94 (103) 97 Nasal Cannula 3.00 06/16/18 07:38 98 Nasal Cannula 3.00 06/16/18 07:30 96.6 124 20 123/85 (98) 97 Nasal Cannula 2.00 I & O 06/17/18 07:00 Intake Total 352 ml Output Total 1340 ml Balance -988 ml Height & Weight Height: 5'3.00" Weight: 134lbs. 3.0oz. 60.544762uy; 23.8 BMI Method:Stated General Appearance: No Apparent Distress, WD/WN, Cachetic Respiratory: Chest Non Tender, Lungs Clear, No Accessory Muscle Use, No Respiratory Distress, Decreased Breath Sounds Cardiovascular: Regular Rate, Rhythm, No Edema, No Gallop, No JVD, No Murmur, Normal Peripheral Pulses Capillary Refill: Less Than 3 Seconds Gastrointestinal: soft, tenderness (EPIGASTRIC) Neurologic/Psychiatric: Other (asleep) Skin: Normal Color, Warm/Dry Results Lab Laboratory Tests 06/16/18 03:40 06/17/18 03:06 Assessment/Plan Assessment/Plan Severe COPDAE with hypoxia -PT refused BiPAP -SVNS NSTEMI -Family refused heart cath -Cardiology is following -Currently on hep gtt Chronic back pain Tobacco use -education Severe debility requiring wheelchair Will consult hospice for education. I discussed code status with patient and she is discussing DNR with family. UPDATE DAUGHTER STATES SHE WANTS TO GO HOME TODAY WITH HOSPICE TODAY. SHE STATES SHE WANTS TO GO HOME WITH HOSPICE. OSWADL BLACKWELL DO Jun 17, 2018 05:41
--- NOTE | 2018-06-17 06:58 | Diagnostic Imaging Report ---
Erect AP chest at 3:15 Indication: Shortness of breath. The heart size is within normal limits and stable when compared to 06/16/2018. The lungs remain clear. There is still no sign of failure, pneumonia or pleural effusion. Mediastinum is not widened. The osseous structures are intact. The orthopedic hardware overlying the cervical spine and the left humeral head seen previously is again evident and no different. Impression: Stable chest. There has been no adverse change since the prior exam. Dictated by: Dictated on workstation # [id number]
[2018-06-17] MEDS: fentaNYL INJECTION 100 MCG/2 ML AMP IV PRN (07:37)
[2018-06-17] MEDS: HEParin DRIP 25000 UNIT/500ML 500 ML IV SCH (08:16)
[2018-06-17] MEDS: ASPIRIN E.C. 81 MG (ECOTRIN) TAB PO SCH (08:34)
[2018-06-17] MEDS ORDERED: meTOproloL SUCCINATE 50 MG (TOPROL XL) TAB PO SCH (09:00)
--- NOTE | 2018-06-17 09:44 | NUR ---
[facility] CALLED REGARDING CONSULT. ON-CALL RN TO CONTACT THIS RN.
--- NOTE | 2018-06-17 10:02 | NUR ---
OK TO STOP HEP GTT PER DR VAZQUEZ. LAURYN CALLED THIS RN BACK, FACESHEET AND H&P FAXED PER HOSPICE REQUEST.
--- NOTE | 2018-06-17 10:57 | NUR ---
[facility] HAS CONTACTED PT'S FAMILY AND IS SETTING UP EQUIPMENT AT HOME. DR VAZQUEZ NOTIFIED AND WILL ENTER D/C ORDERS.
[2018-06-17] MEDS ORDERED: FLU QUADRIvalent (5+ YOA) 2018-2019 (AFLURIA) 0.5 ML IM ONE (11:10)
[2018-06-17] MEDS ORDERED: OXYC1TAB12 PO (11:45)
[2018-06-17] MEDS ORDERED: LORA-405 SL (11:45)
[2018-06-17] MEDS ORDERED: OXYC20OR15 PO (11:45)
--- NOTE | 2018-06-17 11:57 | Discharge Summary-Hospitalist ---
Diagnosis/Chief Complaint Date of Admission Jun 16, 2018 at 06:37 Date of Discharge jun 17 2018 Discharge Date: Jun 17, 2018 Discharge Time: 15:00 Admission Diagnosis Assessment: NSTEMI Severe debility requiring wheelchair bound status without definitive diagnosis per daughter Smoker Oxygen dependent COPD Plan: Cardiac catheterization if patient and family agree Maintain oxygen Nebulizer treatments Discharge Diagnosis non-ST segment elevation WI severe debility chronic back pain COPD O2 dependent-secondary to emphysema descending thoracic intramural hematoma Hypertension Coronary artery disease hydroNephrosis left kidney (1) NSTEMI (non-ST elevated myocardial infarction) Status: Acute (2) Heavy tobacco smoker Status: Chronic (3) HTN (hypertension) Status: Chronic (4) Anxiety Status: Chronic Discharge Summary Procedures/Consulations Dr. Jazmin Robertson Discharge Physical Exam Allergies: Coded Allergies: morphine (Verified Allergy, Unknown, 06/16/18) Vitals & I&Os Vital Signs Date Time Temp Pulse Resp B/P (MAP) Pulse Ox O2 Delivery O2 Flow Rate FiO2 06/17/18 14:20 06/17/18 13:00 107 38 97 Nasal Cannula 3.00 06/17/18 11:26 99.0 General Appearance: WD/WN, Chronically ill, Cachetic Respiratory: Chest Non Tender, Lungs Clear, No Accessory Muscle Use, No Respiratory Distress, Decreased Breath Sounds Cardiovascular: Regular Rate, Rhythm, No Edema, No Gallop, No JVD, No Murmur, Normal Peripheral Pulses Gastrointestinal: Normal Bowel Sounds, Soft Extremity: Slow Capillary Refill Skin: Normal Color, Warm/Dry Neurologic/Psychiatric: Depressed Affect, Other (asleep) Hospital Course Was the Problem List Reviewed?: Yes the patient was admitted with a non-ST segment elevation WI. It was decided that the patient and her family did not want to proceed with a cardiac catheter. Because of her progressive debility and oxygen dependent nature she elected to go on hospice and go home for pain control. The daughters anxious to take her home and considering her long-term prognosis everyone is in agreement with this plan. it was noted that she had a descending thoracic intramural hematoma that extended down to the celiac artery. In addition it was noted that she had severe emphysema. Labs (last 24 hrs) Microbiology 06/16/18 Blood Culture - Preliminary, Resulted No growth 06/16/18 MRSA Screen - Final, Complete MRSA not isolated Patient resulted labs reviewed. Imaging: Reviewed Imaging Report Discussion & Recommendations Discharge Planning: >30 minutes discharge planning Discharge Home Medications: Active Scripts Active Ativan (Lorazepam) 1 Mg Tablet 1 Mg SL Q2H PRN Percocet 10-325 mg Tablet (Oxycodone HCl/Acetaminophen) 1 Each Tablet 1 Tab PO Q8H PRN MDD 3 Oxycodone HCl 20 Mg/1 Ml Oral.conc 10 Mg PO Q15M PRN Reported Metoprolol Tartrate 50 Mg Tablet 25 Mg PO HS PRN TAKES 1/2 (50MG) TABLET Aspirin EC (Aspirin) 81 Mg Tablet.dr 81 Mg PO DAILY PRN Metoprolol Tartrate 50 Mg Tablet 75 Mg PO DAILY TAKES 1 & 1/2 (50MG) TABLET Ventolin Hfa (Albuterol Sulfate) 18 Gm Hfa.aer.ad 2 Puff INH Q4H PRN Oxycontin (Oxycodone HCl) 30 Mg Tab.er.12h 30 Mg PO BID Ondansetron HCl 4 Mg Tablet 4 Mg PO TID PRN Condition at discharge stable Instructions to patient/family Please see electronic discharge instructions given to patient. Clinical Quality Measures End of Life/Advance Care Plan: Advance Care discuss with: patient, family member (s) End of Life Care: Hospice Care (Home) Admission Status Admission Status: Observation DVT/VTE Risk/Contraindication: Risk Factor Score Per Nursin RFS Level Per Nursing on Admit: 4+=Very High Copy Copies To 1: SELF,ALVA ELIZABETH Problem Qualifiers (1) HTN (hypertension): Hypertension type: essential hypertension Qualified Codes: I10 - Essential ( primary) hypertension AMANDA VAZQUEZ MD Jun 17, 2018 11:57
--- NOTE | 2018-06-17 12:25 | Diagnostic Imaging Report ---
PROCEDURE: US abdomen complete. TECHNIQUE: Multiple real-time grayscale images were obtained over the abdomen in various projections. INDICATION: Poor appetite and abdominal pain. FINDINGS: The liver is normal in size without focal lesions. There is no biliary ductal dilatation. Common bile that measures 5 mm. There is no cholelithiasis, gallbladder wall thickening or pericholecystic fluid. The visualized portions of the pancreas are unremarkable. Spleen is normal in size. There is some atherosclerotic plaque of the aorta. There is no aneurysm. IVC is patent. The right kidney is normal in appearance. There is severe left hydronephrosis. There is no ascites. IMPRESSION: Severe left hydronephrosis, otherwise unremarkable abdominal ultrasound. Dictated by: Dictated on workstation # [id number]
--- NOTE | 2018-06-17 14:20 | NUR ---
PINA ZIMMER demonstrates understanding of discharge instructions and accurately returns instructions upon questioning. Copy of Post-Discharge Instructions and Medication Discharge Instructions given to PT/DAUGHTER. PINA ZIMMER is able to manage continuing needs after discharge W/ HOSPICE. Patients belongings returned to PT/FAMILY. Skin dry and intact; no breakdown noted. Patient discharged from [facility]- on 06/17/18 at 1420. PINA ZIMMER left floor via WC, accompanied by STAFF/FAMILY.
--- NOTE | 2018-06-17 18:38 | Cardiology Progress Note ---
Cardiology SOAP Progress Note Subjective: Shortness of breath. Objective: I&O/Vital Signs 06/17/18 06/17/18 06/17/18 06/17/18 07:00 07:02 07:55 08:02 Temp 98.4 Pulse 122 120 118 Resp 31 22 B/P (MAP) 112/71 (85) 111/73 (86) Pulse Ox 94 95 O2 Delivery Nasal Cannula Nasal Cannula O2 Flow Rate 3.00 3.00 06/17/18 06/17/18 06/17/18 06/17/18 08:14 09:00 10:00 11:00 Pulse 101 100 92 Resp 16 14 19 B/P (MAP) 116/97 (103) 128/90 (103) 135/86 (102) Pulse Ox 98 98 98 O2 Delivery Nasal Cannula Nasal Cannula Nasal Cannula Nasal Cannula O2 Flow Rate 3.00 3.00 3.00 3.00 06/17/18 06/17/18 06/17/18 06/17/18 11:21 11:26 12:00 12:59 Temp 99.0 Pulse 98 105 Resp 19 B/P (MAP) 129/87 (101) Pulse Ox 95 O2 Delivery Nasal Cannula Nasal Cannula O2 Flow Rate 3.00 3.00 06/17/18 06/17/18 13:00 14:20 Pulse 107 Resp 38 B/P (MAP) 112/85 (94) Pulse Ox 97 O2 Delivery Nasal Cannula O2 Flow Rate 3.00 06/17/18 00:00 Intake Total 352 ml Output Total 450 ml Balance -98 ml Weight (Pounds): 133 Weight (Ounces): 3.0 Weight (Calculated Kilograms): 60.487806 Constitutional: appears stated age; No apparent distress; well-developed, well- nourished Respiratory: chest is bilaterally symmetric, lungs clear to auscultation, other (coarse breathing) Cardiovascular: regular rate-rhythm; No irregularly irregular, No extra beats, No parasternal heave is noted, No JVD, No edema, No bradycardia, No tachycardia , No point of maximal impulse, No cardiac thrills are palpable; S1 and S2; No gallop/S3, No gallop/S4, No diastolic murmur, No systolic murmur, No friction rub, No click, No other Gastrointestional: No tender, No soft, No round, No distended, No pulsatile mass, No organomegaly, No guarding, No rebound, No tenderness, No hernia, No mass, No audible bowel sounds, No abnormal bowel sounds, No abdominal bruits, No spleenomegaly, No other Extremities: No normal range of motion, No non-tender, No normal inspection, No pedal edema, No calf tenderness, No normal capillary refill, No pelvis stable , No calf tenderness, No inflammation, No pedal edema, No slow capillary refill , No swelling, No other, No abrasion, No clubbing, No cyanosis, No ecchymosis, No laceration, No no lower extremity edema bilateral, No significant edema, No tenderness, No wound Neurologic/Psychiatric: alert, oriented x 3, power is 5/5 both on sides Skin: No rash, No ulcerations Results/Procedures: Labs Laboratory Tests 06/17/18 03:06: White Blood Count 11.4H, Red Blood Count 3.69L, Hemoglobin 11.6, Hematocrit 34L , Mean Corpuscular Volume 93, Mean Corpuscular Hemoglobin 31, Mean Corpuscular Hemoglobin Concent 34, Red Cell Distribution Width 13.6, Platelet Count 324, Mean Platelet Volume 9.2, Neutrophils (%) (Auto) 68, Lymphocytes (%) (Auto) 18, Monocytes (%) (Auto) 13H, Eosinophils (%) (Auto) 2, Basophils (%) (Auto) 0, Neutrophils # (Auto) 7.7, Lymphocytes # (Auto) 2.0, Monocytes # (Auto) 1.4H, Eosinophils # (Auto) 0.2, Basophils # (Auto) 0.0, Sodium Level 137, Potassium Level 4.1, Chloride Level 103, Carbon Dioxide Level 25, Anion Gap 9, Blood Urea Nitrogen 19H, Creatinine 0.86, Estimat Glomerular Filtration Rate > 60, BUN/ Creatinine Ratio 22, Glucose Level 103, Calcium Level 9.4, Corrected Calcium 9.8 , Total Bilirubin 0.4, Aspartate Amino Transf (AST/SGOT) 27, Alanine Aminotransferase (ALT/SGPT) 21, Alkaline Phosphatase 66, Total Protein 5.9L, Albumin 3.5, Triglycerides Level 108, Cholesterol Level 193, LDL Cholesterol Direct 123, VLDL Cholesterol 22, HDL Cholesterol 55 Microbiology 06/16/18 Blood Culture - Preliminary, Resulted No growth 06/16/18 MRSA Screen - Final, Complete MRSA not isolated A/P: Assessment/Dx: Non-STEMI, Abdominal intramural aortic hematoma, Severe COPD exacerbation, Poor appetite and abdominal discomfort. Plan: Patient has requested hospice and will be transferred to hospice care. Non-STEMI: Patient was given aspirin, Brilinta and heparin. I spoke at length about coronary angiography and possible intervention. All risks and complication were explained in detail. However the patient refused. She understands the risk of repeat NM and even . Continue with medical therapy. echocardiogram. Abdominal aortic intramural hematoma: Vascular surgery consultation (unlikely now due to hospice care). Severe COPD exacerbation: Defer to Dr. Wu and the primary team. Nausea/vomiting, weight loss and poor appetite: CTA abdominal and did not show any significant mesenteric ischemia. Thank you for your consultation. Please call me if you have any questions. Felicitas Robertson MD, FACP, FACC, FSCAI, FHRS, CCDS Interventional Cardiology Cardiac Electrophysiology Vascular Medicine and Endovascular Interventions Focused Exam Lactate Level 06/16/18 03:47: Lactic Acid Level 1.28 Clinical Quality Measures Type of Care: Type of Care: Hospice Care (Home) Brian ROBERTSON MD Jun 17, 2018 18:38
== END 2018-06-17 14:20 | disposition hospice, home (50) | DRG 280 ==
LOC: EDUNIT# 03:33 → ER 03:35 → ICU 06:37
PROVIDERS: ADMIT Internal Medicine; ATTEND Internal Medicine
DX: I21.4 Non-ST elevation (NSTEMI) myocardial infarction (principal); J43.9 Emphysema, unspecified; I71.01 Dissection of thoracic aorta; N13.30 Unspecified hydronephrosis; F17.210 Nicotine dependence, cigarettes, uncomplicated; I10 Essential (primary) hypertension; F41.9 Anxiety disorder, unspecified; M54.9 Dorsalgia, unspecified; G89.29 Other chronic pain; K21.9 Gastro-esophageal reflux disease without esophagitis; R11.2 Nausea with vomiting, unspecified; R63.4 Abnormal weight loss; R53.81 Other malaise; Z99.3 Dependence on wheelchair; Z99.81 Dependence on supplemental oxygen
CPT/HCPCS: 36415; 36600; 70450; 71045; 71275; 74174; 76700; 80053; 80061; 81000; 82550; 82553; 82805; 83605; 83735; 83874; 83880; 84484; 85007; 85025; 85027; 85610; 85730; 87040; 87081; 87804; 90471; 90686; 93005; 93041; 93306; 94640; 96374; 96375; 99291

== ENCOUNTER 2018-08-09 18:42 | Inpatient (IN) | payer MEDICARE, OTHER ==
[2018-08-09] VITALS (9 sets, daily range): BP systolic 76–123; BP diastolic 56–97
[~2018-08-09] VITALS: Ht 165.1 cm; Wt 58.1 kg
[2018-08-09] MEDS ORDERED: RT-ALBUTEROL/IPRATROPIUM 3 ML (DUONEB) VIAL ONE ×2 (18:45→18:46)
[2018-08-09] MEDS ORDERED: RT-ALBUTEROL SULF 2.5 MG/3 ML PRE-MIX VIAL ONE (18:46)
[2018-08-09] MEDS ORDERED: RT-ALBUTEROL SULF 2.5 MG/3 ML PRE-MIX VIAL INH STA (18:46)
[2018-08-09] MEDS ORDERED: LACTATED RINGERS 1,000 ML IV ONE (18:46)
--- OUTSIDE RECORDS SUMMARY | 2018-08-09 18:47 | XMS REPORT ---
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 Name Role Phone ALVA GARCIA Unavailable PROBLEMS Type Condition ICD9-CM Code PQA71-VG Code Onset Dates Condition Status SNOMED Code Problem Bilateral leg edema R60.0 Active 378739110 Problem Carpal tunnel syndrome on left G56.02 Active 02408310 Problem Carpal tunnel syndrome on right G56.01 Active 08320493 Problem High cholesterol E78.00 Active 15929702 Problem Osteopenia M85.80 Active 41152830 Problem Diastolic dysfunction I51.9 Active 2266940 Problem Chronic kidney disease, stage 3 N18.3 Active 741472728 Problem Panlobular emphysema J43.1 Active 6937036 Problem Fasting hyperglycemia R73.01 Active 408728542 Problem Retinal ischemia H35.82 Active 84570694 Problem Staph infection B95.8 Active 18590889 Problem Benign essential hypertension I10 Active 9634941 Problem Currently smokes tobacco Z72.0 Active 384836603 Problem Depression F32.9 Active 09259024 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 44131513 ALLERGIES Substance Reaction Event Type Date Status Levaquin rash Drug Allergy May, Active Hydrocodone-Acetaminophen rash Drug Allergy May, Active statins muscle pain Non Drug Allergy May, Active Tramadol HCl Unknown Drug Allergy May, Active NIFEdipine nausea and vomiting Drug Allergy May, Active Morphine Sulfate hallucinations Drug Allergy May, Active Macrobid rash Drug Allergy May, Active ENCOUNTERS Encounter Location Date Diagnosis [facility] [address] [place] [address] May, Radicular leg pain M54.10 ; Postprandial nausea R11.0 ; Carpal tunnel syndrome on right G56.01 ; Carpal tunnel syndrome on left G56.02 ; Chronic kidney disease, stage 3 N18.3 ; Depression F32.9 ; Diastolic dysfunction I51.9 ; Bilateral leg edema R60.0 ; Benign essential hypertension I10 ; 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 ; High cholesterol E78.00 ; Fasting hyperglycemia R73.01 ; Staph infection B95.8 ; Osteopenia M85.80 ; Retinal ischemia H35.82 ; Currently smokes tobacco Z72.0 and Panlobular emphysema J43.[address] [address] May, [address] [address] Apr, IMMUNIZATIONS No Known Immunizations SOCIAL HISTORY Never Assessed REASON FOR VISIT PLAN OF CARE VITAL SIGNS MEDICATIONS Medication Instructions Dosage Frequency Start Date End Date Duration Status Albuterol Sulfate HFA 108 (90 Base) MCG/ACT Inhalation every 6 hrs 2 puffs as needed 6h 30 days Active Zyrtec Allergy 10 MG Orally Once a day 1 tablet 24h 30 day(s) Active Klor-Con 10 10 MEQ Orally Twice a day 1 tablet with food 12h 30 day(s ) Active Hydrochlorothiazide 12.5 MG Orally Once a day 1 capsule in the morning 24h 30 day(s) Active Xanax 0.5 MG Orally TID prn 1 tablet 30 days Active Lisinopril 10 MG Orally Once a day 1 tablet 24h 30 day(s) Active Cyclobenzaprine HCl 10 MG Orally Three times a day 1 tablet as needed 8h Active Silvadene 1 % Externally Once a day 1 application to affected area 24h Active Bactrim DS Active Flonase 50 MCG/ACT Nasally Once a day 1 spray in each nostril 24h 30 day(s) Active PredniSONE 20 MG Orally Once a day 1 tablet 24h 30 day(s) Active Mucinex 600 MG Orally every 12 hrs 1 tablet as needed 12h Active Vitamin D2 2000 UNIT Orally Once a day 1 tablet 24h 30 day(s) Active Bactroban 2 % Externally Three times a day 1 application to affected area 8h 10 day(s) Active Metoprolol Tartrate 100 MG Orally Twice a day 1 tablet with food 12h 30 day(s) Active Trelegy Ellipta 100-62.5-25 MCG/INH Inhalation Once a day 1 puff 24h Active Vitamin D3 44153 UNIT Orally once weekly 1 capsule 30 day(s) Active Oxycodone-Acetaminophen 10-325 MG Orally every 4-6 hrs 1 tablet as needed 30 days Active Lasix 20 MG Orally Once a day 1 tablet 24h 30 day(s) Active RESULTS No Results PROCEDURES No Known procedures INSTRUCTIONS MEDICATIONS ADMINISTERED No Known Medications MEDICAL (GENERAL) HISTORY Type Description Date Medical History hypertension Medical History back pain Medical History esophageal reflux Medical History migraine headaches Medical History lumbar stenosis Medical History chronic obstructive pulmonary disease (COPD) Medical History herniated disc Medical History shortness of breath on exertion Medical History erysipelas Medical History allergic rhinitis Medical History impaired glucose tolerance Medical History finger ulcer Medical History Carpal tunnel syndrome on right Medical History Carpal tunnel syndrome on left Medical History Chronic kidney disease, stage 3 Medical History Depression Medical History Diastolic dysfunction Medical History Bilateral leg edema Medical History Benign essential hypertension Medical History Guttate psoriasis Medical History High cholesterol Medical History Fasting hyperglycemia Medical History Staph infection Medical History Osteopenia Medical History Retinal ischemia Medical History Currently smokes tobacco Medical History Panlobular emphysema Surgical History cataract removal Surgical History hysterectomy Surgical History rotor cuff repair left Surgical History knee replacement Surgical History cervical diskectomy 11/2007 Surgical History lumbar diskectomy
[2018-08-09 18:57] LABS: BASOPHILS % (AUTO) 0 % (0-10); EOSINOPHILS # (AUTO) 0.4 10^3/uL (0.0-0.3); EOSINOPHILS % (AUTO) 1 % (0-10); HEMATOCRIT 46 % (35-52); LYMPHOCYTES # (AUTO) 1.5 X 10^3 (1.0-4.0); LYMPHOCYTES % (AUTO) 4 % (12-44); MEAN CORPUSCULAR HEMOGLOBIN 31 PG (25-34); MEAN CORPUSCULAR HGB CONC 33 G/DL (32-36); MEAN CORPUSCULAR VOLUME 95 FL (80-99); MONOCYTES # (AUTO) 1.8 X 10^3 (0.0-1.0); MONOCYTES % (AUTO) 6 % (0-12); NEUTROPHILS # (AUTO) 29.3 X 10^3 (1.8-7.8); NEUTROPHILS % (AUTO) 89 % (42-75); PLATELET COUNT 334 10^3/uL (130-400); RED CELL DISTRIBUTION WIDTH 12.9 % (10.0-14.5)
[2018-08-09] MEDS ORDERED: RT-ALBUTEROL/IPRATROPIUM 3 ML (DUONEB) VIAL INH ONE (19:00)
[2018-08-09] MEDS ORDERED: CEFEPIME INJECTION 1,000 MG in WATER (STERILE) FOR INJECTION 10 ML IV ONE (19:00)
--- NOTE | 2018-08-09 19:05 | NUR ---
LAB CALLED CRITICAL WBC [address] TERRELL
--- NOTE | 2018-08-09 19:13 | Diagnostic Imaging Report ---
INDICATION: Shortness of air. COMPARISON STUDY: Chest from June 17. FINDINGS: Frontal view of the chest demonstrates mild cardiomegaly. A few Ca B lines are seen in the right lower lung. Pulmonary vessels appear normal. There are no pleural effusions. IMPRESSION: The heart size is slightly enlarged. There has been development of a few Ca B lines in right lower lobe consistent with early edema. Dictated by: Dictated on workstation # [id number]
[2018-08-09 19:14] LABS: ALANINE AMINOTRANSFERASE 31 U/L (0-55); ALBUMIN 4.3 GM/DL (3.2-4.5); ALKALINE PHOSPHATASE 98 U/L (40-136); BUN/CREATININE RATIO 18; CALCIUM 10.1 MG/DL (8.5-10.1); CARBON DIOXIDE 28 MMOL/L (21-32); CHLORIDE 97 MMOL/L (98-107); CREATININE SERUM 0.92 MG/DL (0.60-1.30); GFR ESTIMATED 60; GLUCOSE 139 MG/DL (70-105); POTASSIUM 4.2 MMOL/L (3.6-5.0); SODIUM 138 MMOL/L (135-145); TOTAL PROTEIN 7.6 GM/DL (6.4-8.2)
[2018-08-09 19:15] LABS: INR 1.1 (0.8-1.4); PROTHROMBIN TIME PATIENT 14.6 SEC (12.2-14.7)
[2018-08-09 19:18] LABS: ABG BASE EXCESS 6.8 MMOL/L (-2.5-2.5); ABG OXYGEN SATURATION 100 % (94-100); ABG PCO2 55 MMHG (35-45); ABG PH 7.38 (7.37-7.43); ABG PO2 186 MMHG (79-93); ABG TCO2 33.5 MMOL/L (21.0-31.0); ALLENS TEST POSITIVE
[2018-08-09 19:19] LABS: INSPIRED O2 8L; PATIENT TEMP 98.5; VENTILATOR NO
--- NOTE | 2018-08-09 19:23 | NUR ---
REPORT RECIEVED FROM JUSTYN MORALES. ASSUMED CARE OF PT @ THIS TIME.
[2018-08-09 19:27] LABS: BAND NEUTROPHILS 1 %; BASOPHILS % (MANUAL) 0 %; EOSINOPHILS % (MANUAL) 1 %; LYMPHOCYTES % (MANUAL) 5 %; MONOCYTES % (MANUAL) 2 %; NEUTROPHILS % (MANUAL) 91 %
[2018-08-09 19:28] LABS: RBC MORPH NORMAL
[2018-08-09] MEDS ORDERED: fentaNYL INJECTION 100 MCG/2 ML AMP IVP ONE ×2 (19:30→20:30)
[2018-08-09] MEDS ORDERED: KETOROLAC 30 MG/ML VIAL IVP ONE (19:30)
--- NOTE | 2018-08-09 19:31 | ED Respiratory ---
General Chief Complaint: Respiratory Problems Stated Complaint: RESP DISTRESS Nursing Triage Note: PATIENT ARRIVED VIA EMS, CALLED FOR RESPIRATORY DISTRESS. Source: patient Exam Limitations: no limitations History of Present Illness Date Seen by Provider: Aug 09, 2018 Time Seen by Provider: 18:45 Initial Comments Patient presents to ER by EMS from home with chief complaint of shortness of breath alteration in consciousness. Patient is a history of COPD and gives very little history. EMS reports she was a GCS of 8 initially and then after they gave her some oxygen and DuoNeb became a 12 and was following commands. She has no cough but complains of shortness of breath desiring to sit up as well as back pain. History reveals patient had an in STEMI in May. Patient has chronic severe debility and wheelchair bound status. Uses oxygen at home and smokes cigarettes. Cardiac catheterization was not done inpatient because the family felt the patient was too nervous. Patient also was discovered to have a descending thoracic an intramural hematoma at the time. Allergies and Home Medications Allergies Coded Allergies: morphine (Verified Allergy, Unknown, 06/16/18) Home Medications Albuterol Sulfate 18 Gm Hfa.aer.ad, 2 PUFF INH Q4H PRN for SHORTNESS OF BREATH, (Reported) Aspirin 81 Mg Tablet.dr, 81 MG PO DAILY PRN for PAIN-MILD, (Reported) Lorazepam 1 Mg Tablet, 1 MG SL Q2H PRN for ANXIETY Prescribed by: AMANDA VAZQUEZ on 06/17/18 6553 Metoprolol Tartrate 50 Mg Tablet, 75 MG PO DAILY, (Reported) TAKES 1 & 1/2 (50MG) TABLET Metoprolol Tartrate 50 Mg Tablet, 25 MG PO HS PRN for HIGH BLOOD PRESSURE, ( Reported) TAKES 1/2 (50MG) TABLET Ondansetron HCl 4 Mg Tablet, 4 MG PO TID PRN for NAUSEA/VOMITING-1ST LINE, ( Reported) Oxycodone HCl 30 Mg Tab.er.12h, 30 MG PO BID, (Reported) Oxycodone HCl 20 Mg/1 Ml Oral.conc, 10 MG PO Q15M PRN for PAIN-MILD TO MODERATE Prescribed by: AMANDA VAZQUEZ on 06/17/18 114 Oxycodone HCl/Acetaminophen 1 Each Tablet, 1 TAB PO Q8H PRN for PAIN-MODERATE Prescribed by: AMANDA VAZQUEZ on 06/17/18 1145 Patient Home Medication List Home Medication List Reviewed: Yes Review of Systems Review of Systems Constitutional: No chills, No diaphoresis EENTM: No ear discharge, No ear pain Respiratory: cough, short of breath, wheezing Cardiovascular: No chest pain, No edema Gastrointestinal: No abdominal pain, No constipation Genitourinary: No discharge, No dysuria Past Lmldrdj-Hvcmds-Rihjua Hx Patient Social History Alcohol Use: Denies Use Recreational Drug Use: No Smoking Status: Current Everyday Smoker Type Used: Cigarettes 2nd Hand Smoke Exposure: Yes Recent Foreign Travel: No Contact w/Someone Who Travel: No Recent Infectious Disease Expo: No Recent Hopitalizations: No Physical Abuse: No Sexual Abuse: No Mistreated: No Fear: No Immunizations Up To Date Date of Pneumonia Vaccine: Apr 25, 2015 Seasonal Allergies Seasonal Allergies: No Past Medical History Surgeries: Yes (HYST/BSO; BACK SURGERY; NECK SURGERY; LEFT KNEE SCOPE; CATARACTS) Eye Surgery, Hysterectomy, Oophorectomy, Orthopedic Respiratory: Yes Pneumonia, Chronic Bronchitis, COPD Currently Using CPAP: No Currently Using BIPAP: No Cardiac: Yes Hypertension Neurological: No : 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 Genitourinary: No Gastrointestinal: Yes (ONGOING ABDOMINAL PAIN WITH NAUSEA/VOMITING AND NO APPETITE) Gastroesophageal Reflux Musculoskeletal: Yes (CHRONIC BACK, NECK AND KNEE PAIN--S/P BACK, NECK AND LEFT KNEE SURGERY) Arthritis, Chronic Back Pain Endocrine: No HEENT: Yes Cataract Cancer: No Psychosocial: Yes Anxiety Integumentary: Yes Blood Disorders: No Family Medical History Ankylosing spondylitis SON Asthma 19 MOTHER Diabetes mellitus 19 MOTHER FH: scoliosis DAUGHTER Myocardial infarction 19 FATHER Neoplasm 19 MOTHER (THROAT CANCER) Respiratory disorder DAUGHTER Physical Exam Vital Signs - First Documented 08/09/18 18:45 Temp 98.5 Pulse 106 Resp 27 B/P (MAP) 151/125 (134) Pulse Ox 99 O2 Delivery Nasal Cannula O2 Flow Rate 3.00 FiO2 99 Capillary Refill : Less Than 3 Seconds Height: 5'5.00" Weight: 128lbs. 3.0oz. 58.726065bg; 23.8 BMI Method:Stated General Appearance: WD/WN, severe distress Eyes: Bilateral Eye Normal Inspection, Bilateral Eye PERRL, Bilateral Eye EOMI HEENT: PERRL/EOMI, normal ENT inspection, TMs normal, pharynx normal Neck: non-tender, full range of motion, supple, normal inspection Respiratory: respiratory distress, decreased breath sounds, accessory muscle use, wheezing, expiration Cardiovascular: normal peripheral pulses, no edema, tachycardia Gastrointestinal: normal bowel sounds, non tender, soft Focused Exam Lactate Level 08/09/18 18:45: Lactic Acid Level 1.24 Lactic Acid Level Laboratory Tests Test 08/09/18 18:45 Lactic Acid Level 1.24 MMOL/L (0.50-2.00) Progress/Results/Core Measures Suspected Sepsis Recent Fever Within 48 Hours: No Infection Criteria Present: None New/Unexplained Altered Menta: Yes Sepsis Screen: No Definite Risk SIRS Temperature:98.5 Pulse: 106 Respiratory Rate: 27 Laboratory Tests 08/09/18 18:45: White Blood Count 33.0*H Blood Pressure 151 /125 Mean: 134 08/09/18 18:45: Lactic Acid Level 1.24 Laboratory Tests 08/09/18 18:45: Creatinine 0.92, INR Comment 1.1, Platelet Count 334, Total Bilirubin 1.0 Results/Orders Lab Results Laboratory Tests Test 08/09/18 18:45 08/09/18 19:08 Range/Units White Blood Count 33.0 *H 4.3-11.0 10^3/uL Red Blood Count 4.83 4.35-5.85 10^6/uL Hemoglobin 15.0 11.5-16.0 G/DL Hematocrit 46 35-52 % Mean Corpuscular Volume 95 80-99 FL Mean Corpuscular Hemoglobin 31 25-34 PG Mean Corpuscular Hemoglobin Concent 33 32-36 G/DL Red Cell Distribution Width 12.9 10.0-14.5 % Platelet Count 334 130-400 10^3/uL Mean Platelet Volume 9.0 7.4-10.4 FL Neutrophils (%) (Auto) 89 H 42-75 % Lymphocytes (%) (Auto) 4 L 12-44 % Monocytes (%) (Auto) 6 0-12 % Eosinophils (%) (Auto) 1 0-10 % Basophils (%) (Auto) 0 0-10 % Neutrophils # (Auto) 29.3 H 1.8-7.8 X 10^3 Lymphocytes # (Auto) 1.5 1.0-4.0 X 10^3 Monocytes # (Auto) 1.8 H 0.0-1.0 X 10^3 Eosinophils # (Auto) 0.4 H 0.0-0.3 10^3/uL Basophils # (Auto) 0.0 0.0-0.1 10^3/uL Neutrophils % (Manual) 91 % Lymphocytes % (Manual) 5 % Monocytes % (Manual) 2 % Eosinophils % (Manual) 1 % Basophils % (Manual) 0 % Band Neutrophils 1 % Blood Morphology Comment NORMAL Prothrombin Time 14.6 12.2-14.7 SEC INR Comment 1.1 0.8-1.4 Activated Partial Thromboplast Time 39 H 24-35 SEC Sodium Level 138 135-145 MMOL/L Potassium Level 4.2 3.6-5.0 MMOL/L Chloride Level 97 L 98-107 MMOL/L Carbon Dioxide Level 28 21-32 MMOL/L Anion Gap 13 5-14 MMOL/L Blood Urea Nitrogen 17 7-18 MG/DL Creatinine 0.92 0.60-1.30 MG/DL Estimat Glomerular Filtration Rate 60 BUN/Creatinine Ratio 18 Glucose Level 139 H 70-105 MG/DL Lactic Acid Level 1.24 0.50-2.00 MMOL/L Calcium Level 10.1 8.5-10.1 MG/DL Corrected Calcium 9.9 8.5-10.1 MG/DL Total Bilirubin 1.0 0.1-1.0 MG/DL Aspartate Amino Transf (AST/SGOT) 16 5-34 U/L Alanine Aminotransferase (ALT/SGPT) 31 0-55 U/L Alkaline Phosphatase 98 40-136 U/L Troponin I < 0.028 <0.028 NG/ML B-Type Natriuretic Peptide 324.5 H <100.0 PG/ML Total Protein 7.6 6.4-8.2 GM/DL Albumin 4.3 3.2-4.5 GM/DL Blood Gas Puncture Site LEFT RADIAL Blood Gas Patient Temperature 98.5 Arterial Blood pH 7.38 7.37-7.43 Arterial Blood Partial Pressure CO2 55 H 35-45 MMHG Arterial Blood Partial Pressure O2 186 H 79-93 MMHG Arterial Blood HCO3 32 H 23-27 MMOL/L Arterial Blood Total CO2 33.5 H 21.0-31.0 MMOL/L Arterial Blood Oxygen Saturation 100 94-100 % Arterial Blood Base Excess 6.8 H -2.5-2.5 MMOL/L Frank Test POSITIVE Blood Gas Ventilator Setting NO Blood Gas Inspired Oxygen 8L Micro Results Microbiology 08/09/18 Influenza Types A,B Antigen (BRANDEE) - Final, Complete My Orders Orders - DEJUAN TERRELL Albuterol/Ipra Inhalation Soln (Duoneb I (08/09/18 18:45) Albuterol/Ipra Inhalation Soln (Duoneb I (08/09/18 18:46) Albuterol Pre-Mix Nebs (Rt) (Proventil (08/09/18 18:46) Cbc With Automated Diff (08/09/18 18:46) Comprehensive Metabolic Panel (08/09/18 18:46) Blood Culture (08/09/18 18:46) Sputum Culture (08/09/18 18:46) Urinalysis (08/09/18 18:46) Urine Culture (08/09/18 18:46) Protime With Inr (08/09/18 18:46) Partial Thromboplastin Time (08/09/18 18:46) Chest 1 View, Ap/Pa Only (08/09/18 18:46) Ed Iv/Invasive Line Start (08/09/18 18:46) Ed Iv/Invasive Line Start (08/09/18 18:46) Ekg Tracing (08/09/18 18:46) Troponin I (08/09/18 18:46) Vital Signs Adult Sepsis Patie Q15M (08/09/18 18:46) O2 (08/09/18 18:46) Remove Rings In Anticipation O (08/09/18 18:46) Lactic Acid Analyzer (08/09/18 18:46) Influenza A And B Antigens (08/09/18 18:46) Lactated Ringers (Lr 1000 Ml Iv Solution (08/09/18 18:46) Cefepime Injection (Maxipime Injection) (08/09/18 19:00) Albuterol Pre-Mix Nebs (Rt) (Proventil (08/09/18 18:46) Albuterol/Ipra Inhalation Soln (Duoneb I (08/09/18 19:00) Svn Small Volume Nebulizer (08/09/18 18:46) Manual Differential (08/09/18 18:45) Arterial Blood Gas (08/09/18 19:11) Vapotherm - Admin Rt Rfs (08/09/18 19:21) Ketorolac Injection (Toradol Injection) (08/09/18 19:30) Fentanyl Injection (Sublimaze Injection (08/09/18 19:30) BNP (08/09/18 19:25) Arterial Blood Draw (08/09/18 ) Medications Given in ED Current Medications Medications Dose Ordered Sig/Shawna Route Start Time Stop Time Status Last Admin Dose Admin Albuterol Sulfate 2.5 mg STK-MED ONCE .ROUTE 08/09/18 18:46 08/09/18 18:50 DC 08/09/18 18:50 15 MG Albuterol/ Ipratropium 3 ml STK-MED ONCE .ROUTE 08/09/18 18:45 08/09/18 18:48 DC 08/09/18 18:50 3 ML Cefepime HCl 1000 mg/Sterile Water 10 ml @ 200 mls/hr ONCE ONCE IV 08/09/18 19:00 08/09/18 19:02 DC 08/09/18 19:07 200 MLS/HR Fentanyl Citrate 25 mcg ONCE ONCE IVP 08/09/18 19:30 08/09/18 19:31 DC 08/09/18 19:33 25 MCG Lactated Ringer's 1,000 ml @ 0 mls/hr Q0M ONCE IV 08/09/18 18:46 08/09/18 18:52 DC 08/09/18 19:07 500 MLS/HR Vital Signs/I&O 08/09/18 08/09/18 08/09/18 08/09/18 18:45 18:45 18:53 19:21 Temp 98.5 Pulse 106 110 Resp 27 B/P (MAP) 151/125 (134) Pulse Ox 99 91 O2 Delivery Nasal Cannula Nasal Cannula Nasal Cannula O2 Flow Rate 3.00 3.00 3.00 FiO2 99 08/09/18 19:30 Pulse Ox 100 O2 Delivery Vapotherm O2 Flow Rate 30.00 FiO2 40 08/10/18 00:00 Intake Total 10 ml Balance 10 ml Capillary Refill : Less Than 3 Seconds Blood Pressure Mean: 134 Progress Note : Time: 19:00 Progress Note Septic workup, ABG shows elevated CO2, lactated Ringer, BMP, Vapotherm. Patient improved significantly after the Vapotherm. A lengthy discussion with family about goals of care and apparently they as well as the patient wanted to live forever so they have rescinded hospice. We have discussed at length the prognosis and they want to pursue care. With the elevated white count I suspect that she has a pneumonia on top of the COPD exacerbation. We did an hour-long breathing treatment which helped significantly with her breathing. The Vapotherm and 30 L/m as well as FiO2 of 40 % as keeping her at 100%. ECG Initial ECG Impression Date: Aug 09, 2018 Initial ECG Impression Time: 18:45 Initial ECG Rate: 109 Initial ECG Rhythm: S.Tach Initial ECG Intervals: QT (475) Initial ECG Impression: Normal, Nonspecific Changes Initial ECG Comparisson: Unchanged Comment No acute ST elevation LA however there is 1 block depression in the anterior lateral leads V3, V4 V5 of 1 block or less. Diagnostic Imaging Diagonstic Imaging: Xray Plain Films/CT/US/NM/MRI: chest (1v) Comments NAME: GORANVIVIANAPINA [facility] REC#: [id number] PHYSICIAN: DEJUAN TERRELL MD CC: EPI ALCALA MD; DEJUAN TERRELL Page 1 of 1 RADIOLOGY REPORT [facility]. [place], [place] CC: EPI ALCALA MD; DEJUAN TERRELL Page 1 of 1 RADIOLOGY REPORT NAME: GORANPINA [facility] REC#: [id number] PT STATUS: REG ER : 1945 PHYSICIAN: DEJUAN TERRELL MD ADMIT DATE: 08/09/18/ER Signed Date of Exam: 08/09/18 CHEST 1 VIEW, AP/PA ONLY INDICATION: Shortness of air. COMPARISON STUDY: Chest from June 17. FINDINGS: Frontal view of the chest demonstrates mild cardiomegaly. A few Ca B lines are seen in the right lower lung. Pulmonary vessels appear normal. There are no pleural effusions. IMPRESSION: The heart size is slightly enlarged. There has been development of a few Ca B lines in right lower lobe consistent with early edema. Dictated by: Dictated on workstation # [id number] Dict: 08/09/181903 Trans: 08/09/181917 Interpreted by: EPI ALCALA MD Electronically signed by: EPI ALCALA MD 08/09/181917 Departure Communication (Admissions) Time/Spoke to Admitting Phy: 19:45 Dr Brantley: Discussed case lab EKG imaging findings and she agrees with the patient the ICU would like to consult with cardiology and pulmonology. Vapotherm is okay. Discussed DO NOT INTUBATE, DO NOT RESUSCITATE. Cefepime is acceptable. Time/Spoke to Consulting Phy: 19:50 Discussed the case with Dr. Wu and he agrees to see her. Discussed the case with Dr. Robertson, cardiology and he would like an echocardiogram in the a.m. and serial troponins. Impression Primary Impression: Pneumonia Qualified Codes: J18.9 - Pneumonia, unspecified organism Additional Impressions: COPD exacerbation Sepsis Qualified Codes: A41.9 - Sepsis, unspecified organism Disposition: ADMITTED INPATIENT Condition: Stable Admissions Decision to Admit Reason: Admit from ER (General) Decision to Admit/Date: Aug 09, 2018 Time/Decision to Admit Time: 19:46 Departure-Patient Inst. Referrals: ALVA GARCIA MD (PCP) Primary Care Physician ADRIAN WALKER APRN (Family) Primary Care Physician DEJUAN TERRELL Aug 09, 2018 19:31
--- NOTE | 2018-08-09 19:40 | NUR ---
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 PROVIDER @ BEDSIDE DISCUSSING FAMILIES CONCERNS. PT CONTINUES TO BE RESTING IN TRIPOD POSITION. O2 SAT 100% VIA VAPOTHERM.
[2018-08-09] MEDS ORDERED: HYDROcodone/APAP 5 MG/325 MG (LORTAB) TAB ONE (21:20)
[2018-08-09] MEDS ORDERED: AZITHROMYCIN 500 MG/NS 250 ML IVPB IV SCH ×2 (21:28)
[2018-08-09] MEDS: HYDROcodone/APAP 5 MG/325 MG (LORTAB) TAB PO PRN (21:29)
[2018-08-09] MEDS: fentaNYL INJECTION 100 MCG/2 ML AMP IV PRN (21:30)
[2018-08-09] MEDS ORDERED: ACETAMINOPHEN 325 MG TABLET PO PRN (21:30)
[2018-08-09] MEDS ORDERED: ONDANSETRON 4 MG/2 ML (SDV) Z0FRAN IV PRN (21:30)
[2018-08-09] MEDS ORDERED: CATHETER FLUSH 10 ML SYR IV PRN (21:30)
[2018-08-09] MEDS: LACTATED RINGERS 1,000 ML IV SCH (22:00)
[2018-08-10] VITALS (13 sets, daily range): BP systolic 101–165; BP diastolic 65–109
[2018-08-10 01:04] LABS: BASOPHILS # (AUTO) 0.1 10^3/uL (0.0-0.1); BASOPHILS % (AUTO) 0 % (0-10); EOSINOPHILS # (AUTO) 0.1 10^3/uL (0.0-0.3); EOSINOPHILS % (AUTO) 0 % (0-10); HEMATOCRIT 42 % (35-52); HEMOGLOBIN 13.6 G/DL (11.5-16.0); LYMPHOCYTES # (AUTO) 0.8 X 10^3 (1.0-4.0); LYMPHOCYTES % (AUTO) 3 % (12-44); MEAN CORPUSCULAR HEMOGLOBIN 31 PG (25-34); MEAN CORPUSCULAR HGB CONC 33 G/DL (32-36); MEAN CORPUSCULAR VOLUME 95 FL (80-99); MEAN PLATELET VOLUME 9.1 FL (7.4-10.4); MONOCYTES # (AUTO) 1.4 X 10^3 (0.0-1.0); MONOCYTES % (AUTO) 5 % (0-12); NEUTROPHILS # (AUTO) 23.9 X 10^3 (1.8-7.8); NEUTROPHILS % (AUTO) 91 % (42-75); PLATELET COUNT 282 10^3/uL (130-400); RED CELL DISTRIBUTION WIDTH 12.8 % (10.0-14.5); WHITE BLOOD COUNT 26.3 10^3/uL (4.3-11.0)
[2018-08-10] MEDS: fentaNYL INJECTION 100 MCG/2 ML AMP IV PRN ×4 (01:04→11:20)
[2018-08-10 01:36] LABS: ALANINE AMINOTRANSFERASE 22 U/L (0-55); ALBUMIN 3.6 GM/DL (3.2-4.5); ALKALINE PHOSPHATASE 84 U/L (40-136); BILIRUBIN,TOTAL 0.9 MG/DL (0.1-1.0); BUN/CREATININE RATIO 21; CALCIUM 9.7 MG/DL (8.5-10.1); CARBON DIOXIDE 25 MMOL/L (21-32); CHLORIDE 101 MMOL/L (98-107); CREATININE SERUM 0.81 MG/DL (0.60-1.30); GFR ESTIMATED > 60; GLUCOSE 159 MG/DL (70-105); PHOSPHORUS 3.4 MG/DL (2.3-4.7); SODIUM 139 MMOL/L (135-145); TOTAL PROTEIN 6.3 GM/DL (6.4-8.2)
[2018-08-10 03:06] LABS: BILIRUBIN,URINE NEGATIVE (NEGATIVE); CLARITY,URINE CLEAR; COLOR,URINE YELLOW; GLUCOSE, URINE (UA) NEGATIVE (NEGATIVE); KETONES,URINE NEGATIVE (NEGATIVE); LEUKOCYTE ESTERASE ,URINE NEGATIVE (NEGATIVE); NITRITE,URINE NEGATIVE (NEGATIVE); PH,URINE 6 (5-9); PROTEIN,URINE 4+ (NEGATIVE); UROBILINOGEN,URINE NORMAL (NORMAL)
[2018-08-10 03:17] LABS: BACTERIA,URINE FEW /HPF; RBC,URINE 0-2 /HPF; WBC,URINE RARE /HPF
[2018-08-10] MEDS: RT-ALBUTEROL/IPRATROPIUM 3 ML (DUONEB) VIAL INH SCH ×3 (03:44→10:32)
[2018-08-10] MEDS: LACTATED RINGERS 1,000 ML IV SCH (04:45)
--- NOTE | 2018-08-10 05:55 | Pulmonary Consultation ---
History of Present Illness History of Present Illness Date of Consultation 08/10/18 05:50 Time Seen by Provider: 05:50 Date of Admission History of Present Illness 73yo with hx of severe oxygen dependent COPD who was on hospice presented to ED secondary to HTN (SPB 200 per family), and lethargic. Upon ED admission she was found to have significant acute respiratory failure, and pneumonia. Pt does refuse BiPAP and mechanical ventilation. Pt is a full DNR. She is currently requiring vapotherm high flow oxygen. Pt has accessory muscle use and significant respiratory failure. I am consulted for pulmonary/CC management. Allergies and Home Medications Allergies Coded Allergies: morphine (Verified Allergy, Unknown, 06/16/18) Home Medications Albuterol Sulfate 18 Gm Hfa.aer.ad, 2 PUFF INH Q4H PRN for SHORTNESS OF BREATH, (Reported) Aspirin 81 Mg Tablet.dr, 81 MG PO DAILY PRN for PAIN-MILD, (Reported) Lorazepam 1 Mg Tablet, 1 MG SL Q2H PRN for ANXIETY Prescribed by: AMANDA VAZQUEZ on 06/17/18 1145 Metoprolol Tartrate 50 Mg Tablet, 75 MG PO DAILY, (Reported) TAKES 1 & 1/2 (50MG) TABLET Metoprolol Tartrate 50 Mg Tablet, 25 MG PO HS PRN for HIGH BLOOD PRESSURE, ( Reported) TAKES 1/2 (50MG) TABLET Ondansetron HCl 4 Mg Tablet, 4 MG PO TID PRN for NAUSEA/VOMITING-1ST LINE, ( Reported) Oxycodone HCl 30 Mg Tab.er.12h, 30 MG PO BID, (Reported) Oxycodone HCl 20 Mg/1 Ml Oral.conc, 10 MG PO Q15M PRN for PAIN-MILD TO MODERATE Prescribed by: AMANDA VAZQUEZ on 06/17/18 1145 Oxycodone HCl/Acetaminophen 1 Each Tablet, 1 TAB PO Q8H PRN for PAIN-MODERATE Prescribed by: AMANDA VAZQUEZ on 06/17/18 1145 Past Xepsffi-Wxefgx-Qwthar Hx Patient Social History Alcohol Use: Denies Use Recreational Drug Use: No Smoking Status: Current Everyday Smoker Type Used: Cigarettes 2nd Hand Smoke Exposure: Yes Recent Foreign Travel: No Contact w/Someone Who Travel: No Recent Infectious Disease Expo: No Recent Hopitalizations: No Physical Abuse: No Sexual Abuse: No Mistreated: No Fear: No Immunizations Up To Date Date of Pneumonia Vaccine: Apr 25, 2015 Seasonal Allergies Seasonal Allergies: No Past Medical History Surgeries: Yes (HYST/BSO; BACK SURGERY; NECK SURGERY; LEFT KNEE SCOPE; CATARACTS) Eye Surgery, Hysterectomy, Oophorectomy, Orthopedic Respiratory: Yes Pneumonia, Chronic Bronchitis, COPD Currently Using CPAP: No Currently Using BIPAP: No Cardiac: Yes Hypertension Neurological: No : 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 Genitourinary: No Gastrointestinal: Yes (ONGOING ABDOMINAL PAIN WITH NAUSEA/VOMITING AND NO APPETITE) Gastroesophageal Reflux Musculoskeletal: Yes (CHRONIC BACK, NECK AND KNEE PAIN--S/P BACK, NECK AND LEFT KNEE SURGERY) Arthritis, Chronic Back Pain Endocrine: No HEENT: Yes Cataract Cancer: No Psychosocial: Yes Anxiety Integumentary: Yes Blood Disorders: No Family Medical History Ankylosing spondylitis SON Asthma 19 MOTHER Diabetes mellitus 19 MOTHER FH: scoliosis DAUGHTER Myocardial infarction 19 FATHER Neoplasm 19 MOTHER (THROAT CANCER) Respiratory disorder DAUGHTER Review of Systems Time Seen by Provider: 07:02 Constitutional: Sweats, Weakness, Malaise; No: Fever, Chills, Other Eyes: No: Pain, Vision change, Conjunctivae inflammation, Eyelid inflammation, Other, Redness ENT: Nose congestion; No: Ear pain, Ear discharge, Nose pain, Nose discharge, Mouth pain, Mouth swelling, Throat pain, Throat swelling, Other Respiratory: Cough, Shortness of breath, SOB with excertion, Wheezing; No: Hemoptysis, Pleuritic Pain Cardiovascular: Palpitations, Paroxysmal Noc. Dyspnea; No: Chest Pain, Orthopnea Gastrointestinal: No: Nausea, Vomiting, Abdominal Pain, Diarrhea, Constipation , Melena, Hematochezia, Other Genitourinary: No Dysuria, No Frequency, No Incontinence, No Hematuria, No Retention, No Other Neurological: Weakness, Incoordination, Confusion; No: Change in speech, Seizures Sepsis Event Evaluation Height, Weight, BMI Height: 5'5.00" Weight: 128lbs. 0.0oz. 58.118905rb; 21.3 BMI Method:Stated Exam Exam Vital Signs Date Time Temp Pulse Resp B/P (MAP) Pulse Ox O2 Delivery O2 Flow Rate FiO2 08/10/18 04:00 93 17 144/97 (113) 98 Vapotherm 30.00 18.00 08/10/18 03:45 94 Vapotherm 30.00 25 08/10/18 03:00 92 22 104/65 (78) 97 Vapotherm 30.00 18.00 08/10/18 02:00 104 18 110/88 (95) 98 Vapotherm 30.00 18.00 08/10/18 01:00 96 29 127/95 (106) 98 Vapotherm 30.00 18.00 08/10/18 00:58 107 08/10/18 00:00 91 18 101/69 (80) 97 Vapotherm 30.00 18.00 08/10/18 00:00 97 Vapotherm 25.00 35 08/09/18 23:59 91 95 30 08/09/18 23:30 91 18 96/66 (76) 96 Vapotherm 30.00 18.00 08/09/18 23:30 Vapotherm 18.00 30 08/09/18 23:00 96 22 91/65 (74) 96 Vapotherm 35.00 25.00 08/09/18 22:45 101 16 80/57 (65) 97 Vapotherm 40.00 30.00 08/09/18 22:30 105 18 77/57 (64) 94 Vapotherm 40.00 30.00 08/09/18 22:15 105 17 76/56 (63) 94 Vapotherm 40.00 30.00 08/09/18 22:00 106 18 115/82 (93) 94 Vapotherm 40.00 30.00 08/09/18 21:38 107 14 119/84 (96) 95 Vapotherm 40.00 30.00 08/09/18 21:14 98.8 113 24 123/97 (106) 95 Vapotherm 40.00 30.00 08/09/18 21:10 96 Vapotherm 30.00 40 08/09/18 21:05 98.5 113 24 168/114 (132) 100 Vapotherm 30.00 08/09/18 19:30 100 Vapotherm 30.00 40 08/09/18 19:21 110 08/09/18 18:53 91 Nasal Cannula 3.00 08/09/18 18:45 99 Nasal Cannula 3.00 99 08/09/18 18:45 98.5 106 27 151/125 (134) Nasal Cannula 3.00 I & O 08/10/18 07:00 Intake Total 1010 ml Balance 1010 ml Height & Weight Height: 5'5.00" Weight: 128lbs. 0.0oz. 58.698222zf; 21.3 BMI Method:Stated General Appearance: Anxious, Chronically ill, Severe Distress, Thin HEENT: PERRL/EOMI, Normal ENT Inspection, Pharynx Normal Neck: Full Range of Motion, Normal Inspection, Non Tender, Supple Respiratory: Chest Non Tender, Accessory Muscle Use, Crackles, Decreased Breath Sounds, Respiratory Distress, Wheezing Capillary Refill: Less Than 3 Seconds Gastrointestinal: normal bowel sounds, non tender, soft Extremity: Normal Capillary Refill, Normal Inspection Neurologic/Psychiatric: Alert, Oriented x3, Depressed Affect Skin: Normal Color, Warm/Dry Lymphatic: No Adenopathy Results Lab Laboratory Tests 08/09/18 18:45 08/10/18 01:00 Assessment/Plan Assessment/Plan Acute on chronic respiratory failure -PT is a full DNR and also refuses BiPAP -Consult hospice -Will have family meeting today - Severe oxygen dependent COPD -SVN Q 4 -Oxygen - currently requiring high flow Vapotherm -Solumedrol -Influenza is negative Pneumonia with sepsis -Continue Cefepime and Azithromycin for now OSWALD BLACKWELL DO Aug 10, 2018 05:55
[2018-08-10] MEDS ORDERED: POTASSIUM CL 10MEQ/50ML IVPB 50 ML IV SCH (06:00)
[2018-08-10] MEDS ORDERED: MAGNESIUM 1 GM/100 ML IVPB 100 ML IV SCH (06:00)
[2018-08-10] MEDS ORDERED: KCL 20 MEQ TAB (K-DUR) PO SCH (06:00)
[2018-08-10] MEDS: CATHETER FLUSH 10 ML SYR IV SCH ×2 (06:59→07:57)
--- NOTE | 2018-08-10 07:00 | Diagnostic Imaging Report ---
Portable erect AP chest at 324 hours. INDICATION: Respiratory distress. FINDINGS: The borderline cardiomegaly noted on the prior exam of 08/09/2018 is again evident and no different. The prominent interstitial densities in the right lung base seen on the prior exam are somewhat less striking on this study. The lungs are otherwise generally clear. There is no evidence for overt failure or consolidated pneumonia. The mediastinum is not widened. The osseous structures are intact. IMPRESSION: The overall appearance of the chest has not changed significantly since the prior exam. The right lung base may be slightly better aerated, however. A followup study would be recommended for continued evaluation. Dictated by: Dictated on workstation # [id number]
[2018-08-10] MEDS: HYDROcodone/APAP 5 MG/325 MG (LORTAB) TAB PO PRN ×2 (07:05→12:02)
[2018-08-10] MEDS ORDERED: methylPREDNISolone 40 MG/ML (Solu-MEDROL) VIAL IV SCH (07:16)
[2018-08-10] MEDS ORDERED: ASPIRIN 81 MG CHEW (CHILDREN'S ASA) PO SCH (09:00)
[2018-08-10] MEDS ORDERED: NICOTINE 7 MG (NICODERM) PATCH TD SCH (09:00)
[2018-08-10] MEDS ORDERED: ONDN4T PO (09:56)
[2018-08-10] MEDS ORDERED: FLUT1BLS3 INH (09:56)
[2018-08-10] MEDS ORDERED: LISI-552 PO (09:56)
[2018-08-10] MEDS ORDERED: POTA10TA10 PO (09:56)
[2018-08-10] MEDS ORDERED: PRD20T PO (09:56)
[2018-08-10] MEDS ORDERED: OXYC-465 PO (09:56)
[2018-08-10] MEDS ORDERED: FURO20TA4 PO (09:56)
[2018-08-10] MEDS ORDERED: DOCU-244 PO (09:56)
[2018-08-10] MEDS ORDERED: POLY17PO31 PO (09:56)
[2018-08-10] MEDS ORDERED: METO100T12 PO (09:56)
[2018-08-10] MEDS ORDERED: HYDR12.5 PO (09:56)
[2018-08-10] MEDS ORDERED: RANI150T11 PO (09:56)
--- NOTE | 2018-08-10 09:56 | NUR ---
WENT OVER THE EXT MED HX WITH THE PATIENTS DAUGHTERS AND THEY VERIFIED HOW SHE TAKES HER MEDICATIONS CURRENTLY. A FEW WERE JUST PRESCRIBED YESTERDAY.
--- NOTE | 2018-08-10 10:40 | NUR ---
Pastoral care visit with Dr Gray, Pal Care RN and pts RN and various family members, joined in conversation on end of life care and options. After staff left room had extensive conversation with pt regarding, jules, fear of dying, heaven and family connections. Pt appears to be processing and becoming more accepting, still verbalizes some fear. I had collective prayer with pt and family.
[2018-08-10] MEDS ORDERED: HYDROCHLOROTHIAZIDE 12.5 MG (HCTZ) CAP ONE (10:49)
[2018-08-10] MEDS ORDERED: lisINopril 20 MG (PRINIVIL) TABLET ONE (10:49)
--- NOTE | 2018-08-10 11:23 | Discharge Instructions ---
Discharge Critical access hospital Patient Instructions Goal/Follow Up Appt: Discharged to home on Hospice via ambulance transport Activity & Diet Discharge Diet: No Restrictions Activity as Tolerated: Yes Copy Copies To 1: ALVA GARCIA MD, HOLLY R MD Aug 10, 2018 11:23
--- NOTE | 2018-08-10 11:30 | Consultation-Cardiology ---
HPI-Cardiology Cardiology Consultation: Date of Consultation 08/10/18 Date of Admission Attending Physician Yanet Brantley MD Admitting Physician Monty Jaimes MD Consulting Physician Brian ROBERTSON MD HPI: Time Seen by a Provider: 09:00 Chief Complaint: Severe shortness of breath This is a 73 year old lady with history of severe oxygen dependent COPD who is on hospice. However I recently saw her in May 2018 for possible non-STEMI, however the patient did not want anything invasive. She understood all the risks associated with medical therapy alone. Later in the admission she decided to become hospice care and was transferred to hospice. This time around she presented to the emergency department with significantly elevated blood pressure and altered mental status. She was found to be in acute respiratory failure and pneumonia. The patient again refused mechanical ventilation. She is DO NOT RESUSCITATE. She was started on Vapotherm high flow oxygen but continued to be in significant respiratory distress. Review of Systems-Cardiology Review of Systems Constitutional: As described under HPI; No As described under HPI, No no symptoms reported, No chills, No fever, No lightheadedness Eyes: No As described under HPI, No no symptoms reported, No blindness, No blurred vision, No contact lenses, No drainage, No decreased acuity, No foreign body sensation, No pain, No vision change Ears/Nose/Throat: No As described under HPI, No no symptoms reported, No chronic hearing loss, No ear discharge, No ear pain, No nasal drainage, No ulcerations Respiratory: No no symptoms reported; As described under HPI; No As described under HPI, No cough; orthopnea; No shortness of breath, No SOB with excertion Cardiovascular: No no symptoms reported; As described under HPI; No As described under HPI, No chest pain, No edema, No irregular heart rate, No lightheadedness, No palpitations Gastrointestinal: No no symptoms reported, No As described under HPI, No abdomen distended, No abdominal pain, No blood streaked bowels, No constipation , No diarrhea, No nausea, No vomiting, No stool coloration changes Genitourinary: No As described under HPI, No burning, No dysuria, No discharge , No frequency, No flank pain, No hematuria, No urgency : Yes : No Skin: No rash, No skin related problems, No ulcerations Psychiatric/Neurological: No anxiety, No depression, No seizure, No focal weakness, No syncope Hematologic: No bleeding abnormalities [id number]-Afdrkh-Rpirxt Hx Patient Social History Alcohol Use: Denies Use Recreational Drug Use: No Smoking Status: Current Everyday Smoker Type Used: Cigarettes 2nd Hand Smoke Exposure: Yes Recent Foreign Travel: No Recent Infectious Disease Expo: No Hospitalization with Isolation: Denies Immunizations Up To Date Tetanus Booster (TDap): Unknown Date of Pneumonia Vaccine: Apr 25, 2015 Past Medical History PMH As described under Assessment. Family Medical History Family History: Ankylosing spondylitis SON Asthma 19 MOTHER Diabetes mellitus 19 MOTHER FH: scoliosis DAUGHTER Myocardial infarction 19 FATHER Neoplasm 19 MOTHER (THROAT CANCER) Respiratory disorder DAUGHTER Allergies and Home Medications Allergies Coded Allergies: morphine (Verified Allergy, Unknown, 06/16/18) Home Medications Albuterol Sulfate 18 Gm Hfa.aer.ad, 2 PUFF INH Q4H PRN for SHORTNESS OF BREATH, (Reported) Aspirin 81 Mg Tablet.dr, 81 MG PO DAILY, (Reported) Fluticasone/Umeclidin/Vilanter 1 Each Blst.w.dev, 1 PUFF INH DAILY, (Reported) Hydrochlorothiazide 12.5 Mg Capsule, 12.5 MG PO DAILY, (Reported) Lisinopril 20 Mg Tablet, 20 MG PO DAILY, (Reported) Ondansetron HCl 4 Mg Tab, 4-8 MG PO Q6H PRN for NAUSEA/VOMITING-1ST LINE, ( Reported) Oxycodone HCl/Acetaminophen 1 Each Tablet, 1 TAB PO Q6H PRN for PAIN-MODERATE, ( Reported) Prednisone 20 Mg Tab, 20 MG PO DAILY, (Reported) Patient Home Medication List Home Medication List Reviewed: Yes Physical Exam-Cardiology Physical Exam Vital Signs/I&O 08/10/18 08/10/18 08/10/18 08/10/18 06:48 07:00 07:00 08:00 Pulse 93 100 96 Resp 12 16 B/P (MAP) 138/86 (103) 140/99 (113) Pulse Ox 96 95 93 O2 Delivery Vapotherm Vapotherm Vapotherm O2 Flow Rate 30.00 30.00 30.00 18.00 18.00 FiO2 25 08/10/18 08/10/18 08/10/18 08/10/18 08:00 08:00 09:00 10:00 Temp 98.3 Pulse 98 104 Resp 14 22 B/P (MAP) 154/97 (116) 155/102 (119) Pulse Ox 94 90 95 O2 Delivery Vapotherm Vapotherm Vapotherm O2 Flow Rate 20.00 30.00 30.00 18.00 18.00 FiO2 25 08/10/18 08/10/18 08/10/18 10:32 11:00 12:00 Pulse 105 113 Resp 22 22 B/P (MAP) 148/102 (117) 165/109 (127) Pulse Ox 94 90 92 O2 Delivery Vapotherm Vapotherm Vapotherm O2 Flow Rate 20.00 30.00 30.00 18.00 18.00 FiO2 25 08/10/18 00:00 Intake Total 1010 ml Balance 1010 ml Capillary Refill : Less Than 3 Seconds Constitutional: AAO x 3, apparent distress HEENT: No PERRL, No normal ENT inspection, No TMs normal, No pharynx normal, No scleral icterus (R), No scleral icterus (L), No pale conjunctivae (R), No pale conjunctivae (L), No photophobia, No TM abnormal (R), No TM abnormal (L), No pharyngeal erythema, No tonsillar exudate, No other, No discharge, No EOMI, No hearing is well preserved, No hard of hearing, No oral hygience is good, No ulceration, No xanthelasmas are seen Neck: No non-tender, No full range of motion, No supple, No normal inspection, No carotid bruit, No limited range of motion, No lymphadenopathy (R), No lymphadenopathy (L), No tender lateral, No tender midline, No thyromegaly, No other, No carotid pulses are 2 + bilaterally, No with good upstrokes Respiratory: accessory muscle use, respiratory distress, chest expansion is symmetric, rhonchi Cardiovascular: regular rate-rhythm; No irregularly irregular, No extra beats, No parasternal heave is noted, No JVD, No edema, No bradycardia; tachycardia; No point of maximal impulse, No cardiac thrills are palpable; S1 and S2; No gallop/S3, No gallop/S4, No diastolic murmur, No systolic murmur, No friction rub, No click, No other Gastrointestinal: No tender, No soft, No round, No distended, No pulsatile mass , No organomegaly, No guarding, No rebound, No tenderness, No hernia, No mass, No audible bowel sounds, No abnormal bowel sounds, No abdominal bruits, No spleenomegaly, No other Rectal: deferred Extremities: No normal range of motion, No non-tender, No normal inspection, No pedal edema, No calf tenderness, No normal capillary refill, No pelvis stable , No calf tenderness, No inflammation, No pedal edema, No slow capillary refill , No swelling, No other, No abrasion, No clubbing, No cyanosis, No ecchymosis, No laceration, No no lower extremity edema bilateral, No significant edema, No tenderness, No wound Neurologic/Psychiatric: alert Data Review Labs Laboratory Tests 08/09/18 18:45: White Blood Count 33.0*H, Red Blood Count 4.83, Hemoglobin 15.0, Hematocrit 46, Mean Corpuscular Volume 95, Mean Corpuscular Hemoglobin 31, Mean Corpuscular Hemoglobin Concent 33, Red Cell Distribution Width 12.9, Platelet Count 334, Mean Platelet Volume 9.0, Neutrophils (%) (Auto) 89H, Lymphocytes (%) (Auto) 4L , Monocytes (%) (Auto) 6, Eosinophils (%) (Auto) 1, Basophils (%) (Auto) 0, Neutrophils # (Auto) 29.3H, Lymphocytes # (Auto) 1.5, Monocytes # (Auto) 1.8H, Eosinophils # (Auto) 0.4H, Basophils # (Auto) 0.0, Neutrophils % (Manual) 91, Lymphocytes % (Manual) 5, Monocytes % (Manual) 2, Eosinophils % (Manual) 1, Basophils % (Manual) 0, Band Neutrophils 1, Blood Morphology Comment NORMAL, Prothrombin Time 14.6, INR Comment 1.1, Activated Partial Thromboplast Time 39H , Sodium Level 138, Potassium Level 4.2, Chloride Level 97L, Carbon Dioxide Level 28, Anion Gap 13, Blood Urea Nitrogen 17, Creatinine 0.92, Estimat Glomerular Filtration Rate 60, BUN/Creatinine Ratio 18, Glucose Level 139H, Lactic Acid Level 1.24, Calcium Level 10.1, Corrected Calcium 9.9, Total Bilirubin 1.0, Aspartate Amino Transf (AST/SGOT) 16, Alanine Aminotransferase ( ALT/SGPT) 31, Alkaline Phosphatase 98, Troponin I < 0.028, B-Type Natriuretic Peptide 324.5H, Total Protein 7.6, Albumin 4.3 08/09/18 19:08: Blood Gas Puncture Site LEFT RADIAL, Blood Gas Patient Temperature 98.5, Arterial Blood pH 7.38, Arterial Blood Partial Pressure CO2 55H, Arterial Blood Partial Pressure O2 186H, Arterial Blood HCO3 32H, Arterial Blood Total CO2 33.5H, Arterial Blood Oxygen Saturation 100, Arterial Blood Base Excess 6.8H, Frank Test POSITIVE, Blood Gas Ventilator Setting NO, Blood Gas Inspired Oxygen 8L 08/10/18 01:00: White Blood Count 26.3H, Red Blood Count 4.36, Hemoglobin 13.6, Hematocrit 42, Mean Corpuscular Volume 95, Mean Corpuscular Hemoglobin 31, Mean Corpuscular Hemoglobin Concent 33, Red Cell Distribution Width 12.8, Platelet Count 282, Mean Platelet Volume 9.1, Neutrophils (%) (Auto) 91H, Lymphocytes (%) (Auto) 3L , Monocytes (%) (Auto) 5, Eosinophils (%) (Auto) 0, Basophils (%) (Auto) 0, Neutrophils # (Auto) 23.9H, Lymphocytes # (Auto) 0.8L, Monocytes # (Auto) 1.4H, Eosinophils # (Auto) 0.1, Basophils # (Auto) 0.1, Sodium Level 139, Potassium Level 4.0, Chloride Level 101, Carbon Dioxide Level 25, Anion Gap 13, Blood Urea Nitrogen 17, Creatinine 0.81, Estimat Glomerular Filtration Rate > 60, BUN/ Creatinine Ratio 21, Glucose Level 159H, Calcium Level 9.7, Corrected Calcium 10.0, Total Bilirubin 0.9, Aspartate Amino Transf (AST/SGOT) 13, Alanine Aminotransferase (ALT/SGPT) 22, Alkaline Phosphatase 84, Troponin I < 0.028, Total Protein 6.3L, Albumin 3.6, Phosphorus Level 3.4, Magnesium Level 2.0 08/10/18 02:15: Urine Color YELLOW, Urine Clarity CLEAR, Urine pH 6, Urine Specific [place] 1.020, Urine Protein 4+, Urine Glucose (UA) NEGATIVE, Urine Ketones NEGATIVE, Urine Nitrite NEGATIVE, Urine Bilirubin NEGATIVE, Urine Urobilinogen NORMAL, Urine Leukocyte Esterase NEGATIVE, Urine RBC (Auto) 2+H, Urine RBC 0-2, Urine WBC RARE, Urine Squamous Epithelial Cells 2-5, Urine Crystals NONE, Urine Bacteria FEWH, Urine Casts NONE, Urine Mucus NEGATIVE, Urine Culture Indicated CULTURE PENDING 08/10/18 07:10: Troponin I < 0.028 Microbiology 08/09/18 Blood Culture - Preliminary, Resulted No growth 08/09/18 Influenza Types A,B Antigen (BRANDEE) - Final, Complete A/P-Cardiology Assessment/Admission Diagnosis Severe respiratory failure, Pneumonia, Sepsis, Recent history of non-STEMI. Plan Severe respiratory failure, patient is refusing BiPAP and mechanical ventilation. She is on Vapotherm. Pneumonia, sepsis, IV antibiotics defer to Dr. Wu. Patient has recent history of non-STEMI, however the patient refused coronary angiography. Negative serial troponin during this admission. Mildly elevated BNP. History of abdominal aortic intramural hematoma. Vascular surgery was previously recommended however not done due to transitioned to hospice care. Patient and family are planning to convert to hospice care again today. Awaiting discussion with Dr. Wu. Thank you for your consultation. Please call me if you have any questions. Felicitas Robertson MD, FACP, FACC, FSCAI, FHRS, CCDS Interventional Cardiology Cardiac Electrophysiology Vascular Medicine and Endovascular Interventions Clinical Quality Measures DVT/VTE Risk/Contraindication: Risk Factor Score Per Nursin RFS Level Per Nursing on Admit: 4+=Very High Brian ROBERTSON MD Aug 10, 2018 11:29
--- NOTE | 2018-08-10 11:47 | NUR ---
PALLIATIVE CARE RN in to talk to patient and family about desire for discharge with resumption of [facility] at discharge. Patient wants to go home. She does not want to in the hospital. Currently she is on Vapotherm O2 delivery and will have difficult time transporting by private vehicle due to the risk of expiration during transport. This RN has spoken with [facility] and they are willing to readmit the patient. All equipment is still in place. Had a discussion regarding use of the concentrator which they do not think delivers as well as the tanks. I have faxed the NON Emergent transport form to [facility] and they can be dispatched when RN is ready.
--- NOTE | 2018-08-10 12:15 | NUR ---
Fish Drier encountered pt's daughter, Kathy, outside the 5th floor waiting room. Kathy was tearful and shared that the pt had been sick for "a while" and she recently went home on hospice. Kathy expressed feeling that she did not have a good grasp of hospice, and did not realize her mother was declining so swiftly. She said "I don't why we didn't understand it, but we didn't." Fish Drier normalized the impact of grief upon our ability to absorb information, as the impending loss is much to absorb all in itself. Kathy said "I thought we had more time." She said the pt will discharge back to her own home where Kathy and her will continue providing care. Kathy also shared about her strongly held Religion beliefs, which are a source of strength and comfort to her. She expressed felt awareness of the Holy Spirit's presence with her always. Fish Drier offered empathic listening for grief, normalized caregiver stressors, and affirmed the Lord as her Good Garces to guide their family through this season and even beyond this life. At the close of our visit, Kathy hugged me and said, "I needed this. I believe this was a God-moment."
--- NOTE | 2018-08-10 16:03 | Pulmonary Progress Note ---
Standard Progress Note Progress Notes Date Seen by Provider: Aug 10, 2018 Time Seen by Provider: 14:00 We (RN, hospice chaplain, Lorna) discussed with family extensively at pt's bedside. Current treatment and treatment options. PT states she wants to go home. We explained to pt, and family in depth regarding what to expect from home hospice and the dying process. I did explain we can continue aggressive measures however pt just wants to go home. At the end of the conversation pt, and family all agreed to go home with hospice. I have also discussed pt with Dr. Brantley. Assessment & Plan Acute on chronic respiratory failure -PT is a full DNR and also refuses BiPAP -Consult hospice -Back home with hospice - Severe oxygen dependent COPD Pneumonia with sepsis Total time spent with end of life conversation is 60min. Time spent with patient (mins): 60 Focused Exam Lactate Level 08/09/18 18:45: Lactic Acid Level 1.24 OSWALD BLACKWELL DO Aug 10, 2018 16:03
[2018-08-10] MEDS ORDERED: CEFEPIME 2,000 MG/SWFI 20 ML IV PUSH IV SCH ×2 (19:00)
--- NOTE | 2018-08-10 22:04 | Short Stay Summary ---
History of Present Illness History of Present Illness Reason for visit/HPI Patient revoked hospice and came to ER due to worsening shortness of breath and respiratory failure. Patient has been having worsening symptoms over the last few days. Denies any fever or chills. Decreased PO intake. Patient was previously on hospice due to end stage COPD. Date of Admission Aug 09, 2018 at 19:50 Date of Discharge Aug 10, 2018 at 12:45 Time Seen by Provider: 10:35 Attending Physician Sapna Brantley MD Admitting Physician Monty Jaimes MD Consult Allergies and Home Medications Allergies Coded Allergies: morphine (Verified Allergy, Unknown, 06/16/18) Home Medications Albuterol Sulfate 18 Gm Hfa.aer.ad, 2 PUFF INH Q4H PRN for SHORTNESS OF BREATH, (Reported) Aspirin 81 Mg Tablet.dr, 81 MG PO DAILY, (Reported) Fluticasone/Umeclidin/Vilanter 1 Each Blst.w.dev, 1 PUFF INH DAILY, (Reported) Hydrochlorothiazide 12.5 Mg Capsule, 12.5 MG PO DAILY, (Reported) Lisinopril 20 Mg Tablet, 20 MG PO DAILY, (Reported) Ondansetron HCl 4 Mg Tab, 4-8 MG PO Q6H PRN for NAUSEA/VOMITING-1ST LINE, ( Reported) Oxycodone HCl/Acetaminophen 1 Each Tablet, 1 TAB PO Q6H PRN for PAIN-MODERATE, ( Reported) Prednisone 20 Mg Tab, 20 MG PO DAILY, (Reported) Patient Home Medication List Home Medication List Reviewed: Yes Past Ggcldgh-Vbkaqn-Pdzfqm Hx Patient Social History Alcohol Use: Denies Use Recreational Drug Use: No Smoking Status: Current Everyday Smoker Type Used: Cigarettes 2nd Hand Smoke Exposure: Yes Recent Foreign Travel: No Contact w/other who traveled: No Recent Hopitalizations: No Recent Infectious Disease Expo: No Immunizations Up To Date Tetanus Booster (TDap): Unknown Date of Pneumonia Vaccine: Apr 25, 2015 Seasonal Allergies Seasonal Allergies: No Surgeries Yes (HYST/BSO; BACK SURGERY; NECK SURGERY; LEFT KNEE SCOPE; CATARACTS) Eye Surgery, Hysterectomy, Oophorectomy, Orthopedic Respiratory Yes Currently Using CPAP: No Currently Using BIPAP: No Cardiovascular Yes Hypertension Neurological No 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 Genitourinary No Gastrointestinal Yes (ONGOING ABDOMINAL PAIN WITH NAUSEA/VOMITING AND NO APPETITE) Gastroesophageal Reflux Musculoskeletal Yes (CHRONIC BACK, NECK AND KNEE PAIN--S/P BACK, NECK AND LEFT KNEE SURGERY) Arthritis, Chronic Back Pain Endocrine History of Endocrine Disorders: No HEENT History of HEENT Disorders: Yes HEENT Disorders: Cataract Cancer No Psychosocial History of Psychiatric Problem: Yes Behavioral Health Disorders: Anxiety Integumentary History of Skin or Integumenta: Yes Blood Transfusions History of Blood Disorders: No Family Medical History Family Hx: Ankylosing spondylitis SON Asthma 19 MOTHER Diabetes mellitus 19 MOTHER FH: scoliosis DAUGHTER Myocardial infarction 19 FATHER Neoplasm 19 MOTHER (THROAT CANCER) Respiratory disorder DAUGHTER Review of Systems Constitutional: diaphoresis, weakness EENTM: no symptoms reported Respiratory: dyspnea on exertion, orthopnea, short of breath Cardiovascular: chest pain Gastrointestinal: no symptoms reported; No abdominal pain, No constipation, No diarrhea, No nausea, No vomiting Genitourinary: no symptoms reported; No dysuria, No frequency, No hematuria Musculoskeletal: back pain, muscle pain Skin: change in color Psychiatric/Neurological: Anxiety, Weakness Physical Exam Vital Signs Vital Signs - First Documented 08/09/18 18:45 Temp 98.5 Pulse 106 Resp 27 B/P (MAP) 151/125 (134) Pulse Ox 99 O2 Delivery Nasal Cannula O2 Flow Rate 3.00 FiO2 99 Capillary Refill : Less Than 3 Seconds Height, Weight, BMI Height: 5'5.00" Weight: 128lbs. 0.0oz. [id number]; 21.3 BMI Method:Stated General Appearance: Chronically ill, Moderate Distress Respiratory: Crackles, Decreased Breath Sounds, Respiratory Distress, Other ( pursed lip breathing and tripod posture) Cardiovascular: Regular Rate, Rhythm Gastrointestinal: Normal Bowel Sounds, Non Tender, Soft Extremity: Pedal Edema Neurologic/Psychiatric: Motor Weakness Skin: Pallor Clinical Quality Measures DVT/VTE Risk/Contraindication: Risk Factor Score Per Nursin RFS Level Per Nursing on Admit: 4+=Very High Short Stay Diagnosis Discharge Diagnosis-Short Stay Admission Diagnosis: Acute on Chronic respiratory failure with hypoxia End stage oxygen depenedent COPD Sepsis PNA Final Discharge Diagnosis: See Above Conclusion Labs Laboratory Tests 08/10/18 01:00: White Blood Count 26.3H, Red Blood Count 4.36, Hemoglobin 13.6, Hematocrit 42, Mean Corpuscular Volume 95, Mean Corpuscular Hemoglobin 31, Mean Corpuscular Hemoglobin Concent 33, Red Cell Distribution Width 12.8, Platelet Count 282, Mean Platelet Volume 9.1, Neutrophils (%) (Auto) 91H, Lymphocytes (%) (Auto) 3L , Monocytes (%) (Auto) 5, Eosinophils (%) (Auto) 0, Basophils (%) (Auto) 0, Neutrophils # (Auto) 23.9H, Lymphocytes # (Auto) 0.8L, Monocytes # (Auto) 1.4H, Eosinophils # (Auto) 0.1, Basophils # (Auto) 0.1, Sodium Level 139, Potassium Level 4.0, Chloride Level 101, Carbon Dioxide Level 25, Anion Gap 13, Blood Urea Nitrogen 17, Creatinine 0.81, Estimat Glomerular Filtration Rate > 60, BUN/ Creatinine Ratio 21, Glucose Level 159H, Calcium Level 9.7, Corrected Calcium 10.0, Phosphorus Level 3.4, Magnesium Level 2.0, Total Bilirubin 0.9, Aspartate Amino Transf (AST/SGOT) 13, Alanine Aminotransferase (ALT/SGPT) 22, Alkaline Phosphatase 84, Troponin I < 0.028, Total Protein 6.3L, Albumin 3.6 08/10/18 02:15: Urine Color YELLOW, Urine Clarity CLEAR, Urine pH 6, Urine Specific [place] 1.020, Urine Protein 4+, Urine Glucose (UA) NEGATIVE, Urine Ketones NEGATIVE, Urine Nitrite NEGATIVE, Urine Bilirubin NEGATIVE, Urine Urobilinogen NORMAL, Urine Leukocyte Esterase NEGATIVE, Urine RBC (Auto) 2+H, Urine RBC 0-2, Urine WBC RARE, Urine Squamous Epithelial Cells 2-5, Urine Crystals NONE, Urine Bacteria FEWH, Urine Casts NONE, Urine Mucus NEGATIVE, Urine Culture Indicated CULTURE PENDING 08/10/18 07:10: Troponin I < 0.028 Microbiology 08/09/18 Blood Culture - Preliminary, Resulted No growth 08/09/18 Influenza Types A,B Antigen (BRANDEE) - Final, Complete Conclusion/Plan 73 yo F presented with respiratory failure with end stage COPD Patient was transferred home with comfort care with Hospice. DNR signed. Copy Copies To 1: SELF,MONTY BRANTLEY,SAPNA Romano MD Aug 10, 2018 22:04
[2018-08-11] MEDS ORDERED: HYDROCHLOROTHIAZIDE 12.5 MG (HCTZ) CAP PO SCH (09:00)
[2018-08-11] MEDS ORDERED: lisINopril 20 MG (PRINIVIL) TABLET PO SCH (09:00)
== END 2018-08-10 12:45 | disposition hospice, home (50) | DRG 871 ==
LOC: EDUNIT# 18:42 → ER 18:43 → ICU 19:50
PROVIDERS: ADMIT Family Medicine; ATTEND Family Medicine
DX: A41.9 Sepsis, unspecified organism (principal); J18.9 Pneumonia, unspecified organism; J96.20 Acute and chronic respiratory failure, unspecified whether with hypoxia or hypercapnia; J44.1 Chronic obstructive pulmonary disease with (acute) exacerbation; J44.0 Chronic obstructive pulmonary disease with (acute) lower respiratory infection; I10 Essential (primary) hypertension; K21.9 Gastro-esophageal reflux disease without esophagitis; F17.210 Nicotine dependence, cigarettes, uncomplicated; Z66 Do not resuscitate; F41.9 Anxiety disorder, unspecified; I25.2 Old myocardial infarction; Z99.81 Dependence on supplemental oxygen; Z99.3 Dependence on wheelchair
CPT/HCPCS: 36415; 36600; 71045; 80053; 81000; 82805; 83605; 83735; 83880; 84100; 84484; 85007; 85025; 85027; 85610; 85730; 87040; 87081; 87088; 87804; 93005; 93306; 94640; 99291

== ENCOUNTER → 2018-09-15 | Outpatient (CLI) | payer MEDICARE, OTHER ==
[~2018-09-15] MED LIST changes: +DOCU-244 PO; +HYDR12.5 PO; +LISI-552 PO; +METO100T12 PO; +ONDN4T PO; +OXYC-465 PO; +POLY17PO31 PO
--- NOTE | 2018-09-15 09:54 | Diagnostic Imaging Report ---
Indication: Falls and back pain. Time of exam 9:30 AM Multiple views of the thoracic spine were obtained. Thoracic vertebra show normal height. No definite acute compression fracture seen. There are postop changes of ACDF in the cervical spine. There appears to be an age-indeterminate compression deformity of L1 vertebral body. Pedicles and paraspinous line are intact. Generalized thoracic spondylosis is seen. Impression: Thoracic spondylosis. No acute bony abnormality is detected. Dictated by: Dictated on workstation # [id number]
--- NOTE | 2018-09-15 09:57 | Diagnostic Imaging Report ---
Indication: Previous falls. Back pain. Comparison: None Findings: Frontal, lateral, and oblique radiographic views of the lumbar spine were obtained. Evaluation static alignment demonstrates mild dextroscoliotic deformity epicentered at the L3 level. AP static alignment is maintained. There is no significant anteroretrolisthesis. There is no evidence of jumped facets. Evaluation of the vertebral body heights demonstrates asymmetric height loss at the L1 vertebral body; age-indeterminate. There are also advanced multilevel degenerative changes consisting of intervertebral disc height loss with multilevel endplate sclerotic and osteophytic changes as well as multilevel facet arthropathy. Included small bowel loops are nondistended. Impression: 1. Age-indeterminate compression deformity of L1. Please note, this is new when compared to previous CT dated 06/16/2018. 2. Moderate multilevel degenerative changes. Dictated by: Dictated on workstation # [id number]
== END ==
LOC: RAD FS 09:14
PROVIDERS: ATTEND Nurse Practitioner Family
DX: M43.8X6 Other specified deforming dorsopathies, lumbar region (principal); M47.816 Spondylosis without myelopathy or radiculopathy, lumbar region; M51.36 Other intervertebral disc degeneration, lumbar region; M25.78 Osteophyte, vertebrae; M46.86 Other specified inflammatory spondylopathies, lumbar region; M47.814 Spondylosis without myelopathy or radiculopathy, thoracic region; R29.6 Repeated falls; Z98.1 Arthrodesis status
CPT/HCPCS: 72072; 72110